=== PATIENT | male | born 1970 | race Two or more races ===

== ENCOUNTER 2016-10-19 17:03 | Inpatient (IN) | payer MEDICAID ==
[2016-10-19] VITALS (13 sets, daily range): BP systolic 57–166; BP diastolic 41–90
[~2016-10-19] VITALS: Ht 167.6 cm; Wt 45.5 kg
--- NOTE | 2016-10-19 17:10 | NUR ---
[id number], [id number] from [facility]: more altered, hypotensive. Patient came in vent with the following settings: AC=14, EY=859; PEEP=0 and FIO2=50%. Resp is warm and dry. Skin is warm and dry. Bilateral upper/lower extremities contracted. Dr Snyder at for eval. Addendum: 10/19/16 at 1751 by HAILE abdomen is hard on palpation. g-tube intact.
[2016-10-19] MEDS ORDERED: IV NS 0.9% 1,000 ML ONE ×2 (17:26→22:48)
[2016-10-19] MEDS ORDERED: IV SET PRIMARY 1 EA INFUS.SET MC ONE (17:26)
[2016-10-19] MEDS ORDERED: IV NS 0.9% 500 ML IV ONE (17:26)
[2016-10-19 17:46] LABS: BASOPHILS # (AUTO) 0.7 /CMM (0.0-0.2); EOSINOPHILS # (AUTO) 0.1 /CMM (0.0-0.7); EOSINOPHILS % (AUTO) 0.2 % (0.0-6.0); HEMATOCRIT 31 % (39-51); HEMOGLOBIN 10.7 g/dL (13.5-17.5); LYMPHOCYTES # (AUTO) 1.1 /CMM (0.8-4.8); MEAN CORPUSCULAR HEMOGLOBIN 28 PG (26.0-33.0); MEAN CORPUSCULAR HGB CONC 34 g/dl (31.0-36.0); MEAN CORPUSCULAR VOLUME 80 fL (80-96); MONOCYTES # (AUTO) 0.8 /CMM (0.1-1.30); MONOCYTES % (AUTO) 2.3 % (2.0-12.0); NEUTROPHILS # (AUTO) 32.8 /CMM (1.8-8.9); NEUTROPHILS % (AUTO) 92.5 % (43.0-81.0); PLATELET COUNT (AUTO) 503 /CMM (150-450); RDW COEFFICIENT OF VARIATION 16.6 (11.5-15.0); RED BLOOD CELL COUNT(AUTO) 3.88 MIL/uL (4.5-6.0)
--- NOTE | 2016-10-19 17:48 | NUR ---
PT CAME IN WITH PORTEX 7, PUT PT ON SIMV 14, PS 12, VT 500, 50%. VENT ALARM WORKING AND AUDIBLE. RED OUTLET PLUGGED IN, AMBU BAG AT BEDSIDE. PT TOLERATES WELL.
[2016-10-19 17:50] LABS: WHITE BLOOD COUNT (AUTO) 35.5 K/uL (4.3-11.0)
[2016-10-19] MEDS ORDERED: IV SET PRIMARY PUMP SET 1 EA INFUS.SET MC ONE ×3 (17:55→22:48)
[2016-10-19 17:59] LABS: CALCIUM, SERUM 8.6 mg/dL (8.5-10.1); CARBON DIOXIDE 26 mmol/L (21-32); CHLORIDE 96 mmol/L (98-107); GLUCOSE 109 mg/dL (74-106); POTASSIUM 4.3 mmol/L (3.5-5.1); SODIUM SERUM 129 mmol/L (136-145); UREA NITROGEN, BLOOD 25 mg/dL (7-18)
[2016-10-19 18:00] LABS: INR 1.11 (0.87-1.13); PROTHROMBIN TIME 11.6 SECS (9.5-12.7)
[2016-10-19] MEDS ORDERED: VANCOMYCIN 1 GM in IV D5W 250 ML IV ONE (18:00)
[2016-10-19] MEDS ORDERED: IV NS 0.9% 1,000 ML BAG IV ONE (18:00)
[2016-10-19] MEDS ORDERED: PIPERACILLIN /TAZOBACTAM 3.375 G in IV D5W 50 ML IV ONE (18:00)
[2016-10-19 18:05] LABS: ALANINE AMINOTRANSFERASE 80 U/L (12-78); ALBUMIN 2.3 g/dL (3.4-5.0); ALKALINE PHOSPHATASE 216 U/L (46-116); ASPARTATE AMINOTRANSFERASE 26 U/L (15-37); BILIRUBIN,DIRECT 0.1 mg/dL (0.0-0.2); BILIRUBIN,TOTAL 0.3 mg/dL (0.2-1.0); TOTAL PROTEIN, SERUM 6.9 g/dL (6.4-8.2)
[2016-10-19 18:07] LABS: TROPONIN I < 0.017 ng/mL (0.00-0.056)
[2016-10-19] MEDS ORDERED: NOREPINEPHRINE 8 MG in IV D5W 500 ML IV PRN (18:30)
[2016-10-19] MEDS ORDERED: METO50TA3 GT (18:47)
[2016-10-19] MEDS ORDERED: ACET650S26 GT (18:47)
[2016-10-19] MEDS ORDERED: INSU100V3 SQ (18:47)
[2016-10-19] MEDS ORDERED: ENOX30DI SQ (18:47)
[2016-10-19] MEDS ORDERED: LACT-96 GT (18:47)
[2016-10-19] MEDS ORDERED: BISA10SU8 RC (18:47)
[2016-10-19] MEDS ORDERED: ESOM40CA GT (18:47)
[2016-10-19] MEDS ORDERED: LISI-603 GT (18:47)
[2016-10-19] MEDS ORDERED: DOCU-170 GT (18:47)
[2016-10-19] MEDS ORDERED: IPRA3AMP IH ×2 (18:47)
[2016-10-19] MEDS ORDERED: MAGN400O6 GT (18:47)
[2016-10-19] MEDS ORDERED: NA P133E RC (18:47)
[2016-10-19] MEDS ORDERED: TRAM50TA2 GT (18:47)
[2016-10-19] MEDS ORDERED: BACL10TA GT (18:47)
[2016-10-19] MEDS ORDERED: FERR220S3 GT (18:47)
[2016-10-19 18:50] LABS: APPEARANCE,URINE Clear (CLEAR); BILIRUBIN,URINE Negative (NEGATIVE); BLOOD, URINE Negative Ery/uL (NEGATIVE); COLOR,URINE Yellow (YELLOW); KETONES,URINE Negative (NEGATIVE); LEUKOCYTE ESTERASE ,URINE Negative (NEGATIVE); NITRITE, URINE Negative (NEGATIVE); PROTEIN,URINE Trace mg/dl (NEGATIVE); UGLUCOSE Negative (NEGATIVE); UROBILINOGEN,URINE 0.2 EU/dL (0.2)
[2016-10-19 19:03] LABS: BACTERIA,URINE None seen /HPF (None Seen); RBC,URINE NONE SEEN /HPF (0-2); SQUAMOUS EPITHELIAL CELL,UR Rare /HPF (None Seen); WBC,URINE NONE SEEN /HPF (0-3)
--- NOTE | 2016-10-19 19:08 | NUR ---
report given to THANH No for ASHELY
--- NOTE | 2016-10-19 19:18 | NUR ---
pt resting in er bed, nad noted, skin warm and dry. family is at bed side, pt is on levophed 4 mcg/ min. BP has normalized; 111/65. pt is on elevator tender, will continue to monitor
[2016-10-19 20:10] LABS: BAND % (MANUAL) 10 % (0.0-5.0); LYMPHOCYTES % (MANUAL) 2 % (16-48); MONOCYTES % (MANUAL) 4 % (0-11.0); NEUTROPHILS % (MANUAL) 84 (42-76)
--- NOTE | 2016-10-19 20:30 | NUR ---
ed rn took report for ravi
--- NOTE | 2016-10-19 20:41 | NUR ---
transported pt to icu bed without incident
[2016-10-19] MEDS: IV NS 0.9% 1,000 ML IV PRN (22:55)
[2016-10-19] MEDS ORDERED: Medication Not On Formulary EA (Ipratropium/Albuterol Sulfate (Duoneb 2.5-0.5 Mg/3 Ml So IH PRN (23:00)
[2016-10-19] MEDS ORDERED: BISACODYL SUPP (10 MG) 10 MG/SUPP.RECT SUPP.RECT RC PRN (23:00)
[2016-10-19] MEDS ORDERED: IV NS 0.9% 100 ML IV PRN (23:00)
[2016-10-19] MEDS ORDERED: Z GUARD REMEDY 2 OZ OINT TP PRN (23:00)
[2016-10-19] MEDS ORDERED: ONDANSETRON HCL/PF 4 MG/2 ML VIAL IVP PRN (23:00)
[2016-10-20] VITALS (46 sets, daily range): BP systolic 85–141; BP diastolic 46–104
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
[2016-10-20] MEDS ORDERED: SECONDARY IV SET 1 EA INFUS.SET MC ONE ×2 (02:22→09:21)
[2016-10-20] MEDS ORDERED: IV D5W 50 ML IV ONE (02:22)
[2016-10-20] MEDS ORDERED: PIPERACILLIN /TAZOBACTAM 3.375 G VIAL IV ONE (02:22)
[2016-10-20] MEDS: PIPERACILLIN /TAZOBACTAM 3.375 G in IV D5W 50 ML IV SCH ×5 (02:32→23:33)
[2016-10-20] MEDS ORDERED: TRAMADOL HCL 50 MG TABLET ONE (04:29)
[2016-10-20] MEDS: TRAMADOL HCL 50 MG TABLET GT SCH ×3 (04:35→20:10)
[2016-10-20 05:02] LABS: HEMATOCRIT 30 % (39-51); HEMOGLOBIN 10.1 g/dL (13.5-17.5); LYMPHOCYTES # (AUTO) 1.2 /CMM (0.8-4.8); MEAN CORPUSCULAR HEMOGLOBIN 27 PG (26.0-33.0); MEAN CORPUSCULAR HGB CONC 34 g/dl (31.0-36.0); MEAN CORPUSCULAR VOLUME 80 fL (80-96); MONOCYTES # (AUTO) 0.8 /CMM (0.1-1.30); MONOCYTES % (AUTO) 2.8 % (2.0-12.0); NEUTROPHILS # (AUTO) 27.8 /CMM (1.8-8.9); NEUTROPHILS % (AUTO) 93.2 % (43.0-81.0); PLATELET COUNT (AUTO) 477 /CMM (150-450); RDW COEFFICIENT OF VARIATION 18.1 (11.5-15.0); RED BLOOD CELL COUNT(AUTO) 3.71 MIL/uL (4.5-6.0); WHITE BLOOD COUNT (AUTO) 29.8 K/uL (4.3-11.0)
[2016-10-20 05:20] LABS: ALBUMIN 2.2 g/dL (3.4-5.0); BILIRUBIN,DIRECT 0.1 mg/dL (0.0-0.2); BILIRUBIN,TOTAL 0.3 mg/dL (0.2-1.0); CALCIUM, SERUM 8.8 mg/dL (8.5-10.1); CREATININE 0.6 mg/dL (0.6-1.3); MAGNESIUM 2.1 mg/dL (1.8-2.4); POTASSIUM 3.5 mmol/L (3.5-5.1)
[2016-10-20 05:42] LABS: BAND % (MANUAL) 13 % (0.0-5.0); MONOCYTES % (MANUAL) 4 % (0-11.0); NEUTROPHILS % (MANUAL) 83 (42-76)
--- NOTE | 2016-10-20 08:00 | NUR ---
ICU/RN: PT RECEIVED ON TRACH-VENT, TACHYPNEIC, RR 36-40, HR 130-140'S, FEBRILE AT 100.4 WITH FACIAL GRIMACING NOTED. NS INFUSING AT 100CC/HR THROUGH R SUBCLAVIAN TRIPLE LUMEN CATH. LEVOPHED OFF, BP WITHIN DESIRED PARAMETER. L HAND #22 PATENT AND FLUSHED. PT OPENS EYES, UNABLE TO FOLLOW COMMANDS, RESPONDS TO PAINFUL STIMULI, GAG AND COUGH REFLEX PRESENT. PEG AUSCULTATED FOR PLACEMENT. ADMINISTERED TYLENOL FOR FEVER AND PAIN RELIEF. COOLING MEASURES APPLIED WILL REASSESS FOR EFFECTIVNESS WOUND CARE RENDERED PLACED ON [employer]CI MATTRESS
[2016-10-20] MEDS ORDERED: PIPERACILLIN /TAZOBACTAM 3.375 G in IV D5W 50 ML IV SCH (08:15)
[2016-10-20] MEDS: DOCUSATE SODIUM 100 MG CAPSULE PO SCH (08:40)
[2016-10-20] MEDS: FERROUS SULFATE UDC 300 MG/5 ML UDC GT SCH ×2 (08:40→16:10)
[2016-10-20] MEDS: PANTOPRAZOLE 40 MG/PACK PACK GT SCH (08:43)
[2016-10-20] MEDS: ACETAMINOPHEN 650 MG/SUPP.RECT RC PRN (08:55)
[2016-10-20] MEDS: ENOXAPARIN SODIUM 30 MG/0.3 ML DISP.SYRIN SQ SCH (08:55)
[2016-10-20] MEDS ORDERED: IPRATROPIUM NEB FS 0.5 MG/2.5 ML AMPUL.NEB NEB PRN (09:00)
[2016-10-20] MEDS ORDERED: Medication Not On Formulary EA (Esomeprazole Mag Trihydrate (Nexium) 40 MG) GT SCH (09:00)
[2016-10-20] MEDS ORDERED: ALBUTEROL FS 2.5 MG/3 ML VIAL.NEB NEB PRN (09:00)
[2016-10-20] MEDS: VANCOMYCIN 0.75 GM in IV D5W 250 ML IV SCH ×2 (09:23→16:10)
[2016-10-20] MEDS ORDERED: FIBERSOURCE HN 1,000 ML BOTTLE GT PRN (10:00)
--- NOTE | 2016-10-20 10:30 | NUR ---
ICU/RN: DR URIAS NOTIFIED OF HR 120-130'S, COOLING MEASURES EFFECTIVE. CONTINUES TO DISPLAY S/S DISCOMFORT, FACIAL GRIMACING, CRYING. TURNED AND REPOSITIONED FOR COMFORT. BOILERMAKER'S ASSISTANT NOTIFIED. Addendum: 10/20/16 at 1116 by AYLEEN PRICE RN AMENDMENT: DR ERNST NOTIFIED.
[2016-10-20 11:14] LABS: LYMPHOCYTES % (MANUAL) 0 % (16-48)
[2016-10-20] MEDS ORDERED: FEE PK DOSING 1 MIN EA MC ONE (11:45)
[2016-10-20] MEDS: IV NS 0.9% 1,000 ML IV PRN (11:47)
[2016-10-20] MEDS ORDERED: NOREPINEPHRINE 8 MG in IV D5W 500 ML IV PRN (12:00)
--- NOTE | 2016-10-20 13:00 | NUR ---
ICU/RN: BED BATH RENDERED; COOLING MEASURES EFFECTIVE. PT REQUIRES FREQUENT ORAL AND TRACHEAL SUCTIONING.
--- NOTE | 2016-10-20 15:30 | NUR ---
ICU/RN: FAMILY AT BEDSIDE. UPDATED ON PT STATUS. PT APPEARS TO RESPONDS TO NAME, TRACKS WHEN SPOKEN TO BY SISTER.
--- NOTE | 2016-10-20 17:00 | NUR ---
ICU/RN: DR KINNEY AT BEDSIDE FOR ID CONSULT; UPDATED ON PT STATUS. MD SPOKE WITH FAMILY REGARDING POC.
[2016-10-20] MEDS ORDERED: VANCOMYCIN 1 GM in IV D5W 250 ML IV SCH (18:00)
--- NOTE | 2016-10-20 19:10 | NUR ---
ICU/RN: PT COMFORTABLE ON CURRENT VENT SETTINGS; BREATHING EVEN AND UNLABORED, AFEBRILE, NO FACIAL GRIMACING NOTED, LEVOPHED OFF, HR DOWN TO ST 110'S. FC DRAINING WELL TO GRAVITY. BILAT HEELS OFFLOADED. CARE ENDORSED TO PM RN FOR ASHELY.
--- NOTE | 2016-10-20 20:00 | NUR ---
ITALIAN TEACHER - NOTES - PT RECEIVED ON TRACH-VENT, NS INFUSING AT 100CC/HR THROUGH R SUBCLAVIAN TRIPLE LUMEN CATH. LEVOPHED OFF, BP WITHIN DESIRED PARAMETER. L HAND #22 PATENT AND FLUSHED. PT OPENS EYES, UNABLE TO FOLLOW COMMANDS, RESPONDS TO PAINFUL STIMULI, GAG AND COUGH REFLEX PRESENT. PEG AUSCULTATED FOR PLACEMENT.
[2016-10-20] MEDS: LEVOFLOXACIN 750 MG /D5W 150ML 750 MG in PREMIX 1 EA IV SCH (20:09)
[2016-10-20] MEDS: MORPHINE SULFATE INJ 2 MG/ML DISP.SYRIN IV PRN (20:41)
--- NOTE | 2016-10-20 21:27 | NUR ---
PT RECEIVED TRACHED ON VENT ON NOTED SETTINGS. NO DISTRESS. PT TOLERATING VENT SETTINGS. SX'D FOR SML AMT OF THICK PALE SECRETIONS. VENT ALARMS SET AND AUDIBLE. AMBU BAG AT [facility]. VENT PLUGGED INTO RED OUTLET. WILL CONTINUE TO MONITOR. Addendum: 10/20/16 at 2130 by MADELEINE GONZALEZ RT Amended: Links added.
[2016-10-21] VITALS (23 sets, daily range): BP systolic 95–143; BP diastolic 55–99
[2016-10-21] MEDS: VANCOMYCIN 0.75 GM in IV D5W 250 ML IV SCH ×3 (00:45→21:48)
[2016-10-21] MEDS: TRAMADOL HCL 50 MG TABLET GT SCH ×3 (04:29→20:36)
[2016-10-21] MEDS: IV NS 0.9% 1,000 ML IV PRN ×3 (04:29→16:12)
[2016-10-21 05:24] LABS: CALCIUM, SERUM 8.7 mg/dL (8.5-10.1); CREATININE 0.5 mg/dL (0.6-1.3)
[2016-10-21] MEDS: PIPERACILLIN /TAZOBACTAM 3.375 G in IV D5W 50 ML IV SCH ×4 (06:53→23:43)
[2016-10-21 07:47] LABS: BASOPHILS % (AUTO) 0.2 % (0.0-2.0); EOSINOPHILS # (AUTO) 0.3 /CMM (0.0-0.7); EOSINOPHILS % (AUTO) 2.1 % (0.0-6.0); HEMATOCRIT 26 % (39-51); HEMOGLOBIN 8.8 g/dL (13.5-17.5); LYMPHOCYTES # (AUTO) 1.1 /CMM (0.8-4.8); LYMPHOCYTES % (AUTO) 8.9 % (20.0-44.0); MEAN CORPUSCULAR HEMOGLOBIN 28 PG (26.0-33.0); MEAN CORPUSCULAR HGB CONC 34 g/dl (31.0-36.0); MEAN CORPUSCULAR VOLUME 81 fL (80-96); MONOCYTES # (AUTO) 0.9 /CMM (0.1-1.30); MONOCYTES % (AUTO) 6.9 % (2.0-12.0); NEUTROPHILS # (AUTO) 10.2 /CMM (1.8-8.9); NEUTROPHILS % (AUTO) 81.9 % (43.0-81.0); PLATELET COUNT (AUTO) 413 /CMM (150-450); RDW COEFFICIENT OF VARIATION 17.8 (11.5-15.0); RED BLOOD CELL COUNT(AUTO) 3.19 MIL/uL (4.5-6.0); WHITE BLOOD COUNT (AUTO) 12.4 K/uL (4.3-11.0)
[2016-10-21] MEDS: PANTOPRAZOLE 40 MG/PACK PACK GT SCH (08:18)
[2016-10-21] MEDS: DOCUSATE SODIUM 100 MG CAPSULE PO SCH (08:18)
[2016-10-21] MEDS: FERROUS SULFATE UDC 300 MG/5 ML UDC GT SCH ×2 (08:18→16:07)
[2016-10-21] MEDS: MORPHINE SULFATE INJ 2 MG/ML DISP.SYRIN IV PRN (08:53)
[2016-10-21] MEDS: ENOXAPARIN SODIUM 30 MG/0.3 ML DISP.SYRIN SQ SCH (08:56)
[2016-10-21 09:04] LABS: ABG BASE EXCESS -1.8 mmol/L; ABG OXYGEN SATURATION 98.6 % (92.0-98.5); ABG PCO2 30.3 mmHg (35.0-45.0); ABG PH 7.465 (7.350-7.450); ABG PO2 157.9 mmHg (75.0-100.0); AaDO2 164.5 mmHg; COHb 0.3 % (0.5-1.5); MetHb 0.6 % (0.0-1.5); O2Hb 97.7 % (94.0-97.0); SITE, ABG Right Radial; VT, ABG 500 mL
--- NOTE | 2016-10-21 10:00 | NUR ---
MBA INTERNS[employer]IP- Leighton CROSS CIRCUS TRAIN SUPERVISOR AT BEDSIDE. ASKED CIRCUS TRAIN SUPERVISOR IF OK TO START PT ON GTF. PER Leighton CROSS, OK TO RESUME GTF OF FIBERSOURCE @ 50 ML/HR. CIRCUS TRAIN SUPERVISOR TO PLACE ORDER. WILL CONTINUE TO MONITOR.
--- NOTE | 2016-10-21 10:10 | NUR ---
TECHNICAL ILLUSTRATIONS MAP INKER- RUDY TROUGH THIS AM= 28. PER PHARMACIST, HOLD 9 AM DOSE. VANCOMYCIN NOT GIVEN. WILL CONTINUE TO MONITOR.
--- NOTE | 2016-10-21 10:45 | NUR ---
SED SPECIAL EDUCATION TEACHER- PT DISPLAYING S/S OF PAIN, DISCOMFORT, HR INCREASING TO THE 130S. ADMINISTERED MORPHINE 2 MG IV AT 0850 AND WAS EFFECTIVE. HOWEVER DOSE IS NOT DUE AT THIS TIME. UPDATED DR. SEGURA WITH PT CONDITION. OBTAINED ORDER FOR ATIVAN 1 MG IVP Q1H PRN. ORDER PLACED. WILL CONTINUE TO MONITOR.
[2016-10-21] MEDS: POTASSIUM CHLORIDE 20 MEQ POWDER PACKET GT SCH ×3 (10:49→12:43)
--- NOTE | 2016-10-21 11:30 | NUR ---
PHARMACY SCHEDULER- RAPID INFLUENZA SPECIMEN TAKEN AND PLACED IN FRIDGE FOR LAB CALENDER FEEDER. 1145- RT COLLECTED SPUTUM CULTURE. WILL CONTINUE MONITOR.
--- NOTE | 2016-10-21 11:59 | NUR ---
TD/RN REPORT FROM ICU RECEIVED REPORT FROM ICU NURSE LOVE FOR PT TO BE DOWNGRADED TO [facility] STATUS. AWAITING FOR PT'S ARRIVAL.
--- NOTE | 2016-10-21 12:00 | NUR ---
LEAD PORTFOLIO MANAGER- REPORT GIVEN TO COLTEN RN 1247- PT TRANSFERRED TO [facility] ROOM 119-1 VIA ACLS PROTOCOL. ALL BELONGINGS SENT WITH PATIENT. Addendum: 10/21/16 at 1325 by LOVE THOMPSON RN ENDORSED TO COLTEN RN NEED TO COLLECT STOOL OB. PT HAS NOT HAD BOWEL MOVEMENT DURING MY SHIFT.
[2016-10-21] MEDS: LORAZEPAM INJ 2 MG/ML VIAL IV PRN ×2 (12:05→15:44)
[2016-10-21] MEDS: FIBERSOURCE HN 1,000 ML BOTTLE GT PRN (12:44)
--- NOTE | 2016-10-21 12:45 | NUR ---
TD/DIANETICIST TO TD UNIT - ROOM 119#1 PT ARRIVED VIA BED, ACCOMPANIED BY ICU NURSE LOVE AND RTCARLOS. NO ACUTE DISTRESS, PT OPEN EYES, NO TRACKING AND OBTUNDED. PT PLACED BACK ON VENTILATOR RATE SET PRESCRIBED, SATURATING @ 100%, SUCTIONED FOR AIRWAY CLEARANCE, LUNG SOUNDS CLEAR. ON TELE WITH SINUS TACHY, HR 114. IV SITES FLUSHED, PATENT WITH NO S/S OF INFECTION. IV INFUSION OF NS @ 75CC/HR, CONTINUED. GT SITE FLUSHED, PATENT, GTF INITIATED WITH FIBERSOURCE @ 50CC/HR. CROOK CATHETER INTACT WITH NOTED YELLOW URINE OUTPUT. PT IS COMFORTABLE AT THIS TIME. SCHEDULED MEDICATIONS TO BE GIVEN. CL WITHIN REACHED AND SAFETY MAINTAINED. ON GOING MONITORING.
--- NOTE | 2016-10-21 18:00 | NUR ---
TD/RN AFTERNOON ROUNDS PM CARE PROVIDED. NO ACUTE CHANGE OF CONDITION. ON GOING MONITORING.
--- NOTE | 2016-10-21 19:13 | NUR ---
TD/RN AM SHIFT END NOTES ALL NEEDS MET. NO CHANGE OF CONDITION NOTED SINCE PT WAS TRANSFERRED FROM ICU. PT ENDORSED TO PM NURSE TO CONTINUE CARE. CL WITHIN REACHED AND SAFETY MAINTAINED.
--- NOTE | 2016-10-21 19:25 | NUR ---
COLTEN RN OPENING NOTES: RECEIVED PT ON BED OBTUNDED, NON VERBAL WITH SPONTANEOUS EYE OPENING, DOES NOT TRACK; ON TRACH TO [facility] VENT ON SIMV MODE; TOLERATED WELL, NOT IN APPARENT DISTRESS AT THIS TIME, KEPT HOB ELEVATED AND ASPIRATION PRECAUTIONS OBSERVED AT ALL TIMES; SINUS TACH ON MONITOR HR AT 120'S. IV ACCESS ON R HAND G22 SL PATENT AND INTACT, WELL, R SUBCLAVIAN CENTRAL LINE, ALL 3 LUMENS INTACT, WITH GOOD BLOOD RETURN. GT INTACT, FEEDING ON ONGOING RATE, NO NOTED RESIDUALS. FC INTACT, TO A CLOSED SYSTEM, DRAINING TO GRAVITY. SAFETY MEASURES ENSURED. NO NOTED NON VERBAL PAIN CUES AT THIS TIME. MONITORED CONTINUOUSLY.
[2016-10-21] MEDS: LEVOFLOXACIN 750 MG /D5W 150ML 750 MG in PREMIX 1 EA IV SCH (20:35)
[2016-10-21] MEDS ORDERED: SECONDARY IV SET 1 EA INFUS.SET MC ONE (20:39)
--- NOTE | 2016-10-21 21:26 | NUR ---
PT TRACHED ON MECHANICAL VENT W/ SETTINGS PER MD. VENT IN RED OUTLET, AMBUBAG AT BEDSIDE, VENT ALARMS CHECKED AND AUDIBLE. TRACH TUBE SECURE, PATENT. PT SX'ED AND LAVAGED PRN. NO RESP DISTRESS NOTED. PLAN IS TO CONTINUE CARE W/ CURRENT MD ORDERS AND MONITOR FOR CHANGES Addendum: 10/21/16 at 2126 by MARCO ANTONIO COLON RT Amended: Links added.
[2016-10-21] MEDS ORDERED: IV NS 0.9% 250 ML IV ONE (23:44)
[2016-10-21] MEDS ORDERED: IV SET PRIMARY PUMP SET 1 EA INFUS.SET MC ONE (23:44)
[2016-10-22] VITALS (8 sets, daily range): BP systolic 99–129; BP diastolic 60–82
[2016-10-22] MEDS: LORAZEPAM INJ 2 MG/ML VIAL IV PRN ×2 (00:40→23:16)
--- NOTE | 2016-10-22 00:50 | NUR ---
RN NOTES: NOTED PATIENT'S HEART RATE INCREASE TO 130'S-140'S SUSTAINING, PATIENT'S LEG SLIGHTLY RESTLESS AND PATIENT IS DIAPHORETIC. TEMP CHECKED AT 98.3 ORALLY AND RANDOM BS CHECK DONE, NOTED 81MG/DL; GT FEEDING ONGOING STILL. ATIVAN 1MG IV GIVEN PRN. TO MONITOR RESPONSE TO MEDICATION. 0200 PATIENT'S HEART RATE NOW DOWN TO 120'S BASELINE BEGINNING OF SHIFT. REPOSITIONED PATIENT NOW NOTED TO BE ASLEEP. TO CONTINUE TO MONITOR FOR FURTHER INCREASE IN HR.
[2016-10-22] MEDS: TRAMADOL HCL 50 MG TABLET GT SCH ×3 (05:08→20:21)
[2016-10-22] MEDS: PIPERACILLIN /TAZOBACTAM 3.375 G in IV D5W 50 ML IV SCH ×4 (05:08→23:16)
--- NOTE | 2016-10-22 06:38 | NUR ---
RN CLOSING NOTES: PT REMAINED IN BED WITH MECH VENT ORDERED; TOLERATED WELL, NOT IN APPARENT DISTRESS. REMAINED SINUS TACH ON MONITOR HR AT 112 BPM, THE REST OF VITAL SIGNS STABLE. SKIN CARE RENDERED. GT INTACT, FEEDING ONGOING TOLERATED WELL. FC DRAINED AND UO DOCUMENTED. AM LABS DRAWN, RESULTS PENDING. SAFETY MEASURES ENSURED AT ALL TIMES. CONTINUOUSLY MONITORED. TO ENDORSE TO AM SHIFT RN.
[2016-10-22 06:50] LABS: BASOPHILS % (AUTO) 0.3 % (0.0-2.0); EOSINOPHILS # (AUTO) 0.5 /CMM (0.0-0.7); EOSINOPHILS % (AUTO) 4.5 % (0.0-6.0); HEMATOCRIT 27 % (39-51); HEMOGLOBIN 9.1 g/dL (13.5-17.5); LYMPHOCYTES # (AUTO) 1.3 /CMM (0.8-4.8); LYMPHOCYTES % (AUTO) 11.7 % (20.0-44.0); MEAN CORPUSCULAR HEMOGLOBIN 27 PG (26.0-33.0); MEAN CORPUSCULAR HGB CONC 33 g/dl (31.0-36.0); MEAN CORPUSCULAR VOLUME 81 fL (80-96); MONOCYTES % (AUTO) 8.9 % (2.0-12.0); NEUTROPHILS # (AUTO) 8.5 /CMM (1.8-8.9); NEUTROPHILS % (AUTO) 74.6 % (43.0-81.0); PLATELET COUNT (AUTO) 397 /CMM (150-450); RDW COEFFICIENT OF VARIATION 17.8 (11.5-15.0); RED BLOOD CELL COUNT(AUTO) 3.36 MIL/uL (4.5-6.0); WHITE BLOOD COUNT (AUTO) 11.4 K/uL (4.3-11.0)
[2016-10-22 06:55] LABS: CREATININE 0.5 mg/dL (0.6-1.3); MAGNESIUM 1.7 mg/dL (1.8-2.4); POTASSIUM 3.8 mmol/L (3.5-5.1)
--- NOTE | 2016-10-22 07:26 | NUR ---
RN INITIAL NOTES PT IS IN BED, HOB OF ELEVATED, ON MECHANICAL VENT, TOLERATING CURRENT SETTINGS, TRACH INTACT. OBTUNDED, NON VERBAL. RIGHT SUBCLAVIAN LINE IS FLUSHED AND PATENT, ON TKO AND IVF. ON CONTINUOUS FEEDING, NO RESIDUAL NOTED. CROOK CATH IS PATENT AND DRAINING YELLOW URINE. SIDE RAILS UP, BED LOCKED AND IN LOWEST POSITION. WILL CONTINUE TO MONITOR.
[2016-10-22] MEDS: PANTOPRAZOLE 40 MG/PACK PACK GT SCH (09:00)
[2016-10-22] MEDS: FERROUS SULFATE UDC 300 MG/5 ML UDC GT SCH ×2 (09:00→17:15)
[2016-10-22] MEDS: VANCOMYCIN 0.75 GM in IV D5W 250 ML IV SCH ×2 (09:00→22:01)
[2016-10-22] MEDS: ENOXAPARIN SODIUM 30 MG/0.3 ML DISP.SYRIN SQ SCH (09:02)
[2016-10-22] MEDS: DOCUSATE SODIUM 100 MG CAPSULE PO SCH (09:04)
[2016-10-22] MEDS: IV NS 0.9% 1,000 ML IV PRN (11:29)
[2016-10-22] MEDS: FIBERSOURCE HN 1,000 ML BOTTLE GT PRN (11:34)
[2016-10-22] MEDS: Magnesium 1GM/D5W 100ML PREMIX 100 ML IV SCH ×2 (13:06→14:32)
--- NOTE | 2016-10-22 14:08 | NUR ---
Social service consult requested by Dr. Franz in regards to pt's sister wanting to get DPOA. COOPER called pt's sister Byron and spoke to her Abelardo Canales since Byron only speaks Swedish. Abelardo informed COOPER that Byron wants to get DPOA for the pt. COOPER explained to Abelardo that since pt. is not alert and oriented and non-verbal and cannot make his wishes known, she would have to go through conservatorship through the court. Abelardo informed COOPER he will explain the process to Byron. Addendum: 10/22/16 at 1424 by CARLIN GAMBOA Abelardo also informed COOPER that Byron pt's sister does not want pt. to go back to [facility] once medically cleared. She would like a different placement. COOPER informed Abelardo she will inform upper caser Devora regarding their request. COOPER contacted Devora x [phone] and informed her regarding change in placement wanted by the family.
[2016-10-22] MEDS: LACTOBACILLUS RHAMNOSUS GG 1 EACH CAP.SPRINK GT SCH (17:15)
--- NOTE | 2016-10-22 19:23 | NUR ---
RN CLOSING NOTES NO SIGNIFICANT CHANGES DURING THE SHIFT, SINUS TACHY ON TELE MONITOR, TOLERATING CURRENT SIMV MECH VENT SETTINGS, NO RESPIRATORY DISTRESS NOTED, ON CONTINUOUS FEEDING AND TOLERATING IT WELL, NO RESIDUAL NOTED. ALL MEDS GIVEN ORDERED. KEPT PT CLEAN AND DRY. SIDE RAILS UP, BED LOCKED AND IN LOWEST POSITION. R SUBCLAVIAN IS CLEAN AND NO INFECTION NOTED. WILL ENDORSED TO NIGHT NURSE FOR CONTINUATION OF CARE.
--- NOTE | 2016-10-22 19:30 | NUR ---
RN NOTES: RECEIVED PATIENT, AWAKE, OBTUNDED, NO TRACKING. NO RESPIRATORY DISTRESS ON VENT. SETTINGS TOLERATING WELL. SINUS TACHYCARDIA ON MONITOR, HEART RATE 127BPM. IV ACCESS TO RIGH SUBCLAVIAN TRIPLE LUMEN ON THE RIGHT CHEST, PATENT INTACT WITH GOOD BLOOD FLOW. GT IN PLACE, FEEDING FIBERSOURCE AT 50CC/HR, TOLERATING WELL. NO RESIDUAL. WITH FC, DRAINING CLEAR YELLOW WITH NO FOUL ODOR URINE. SAFETY MEASURES INSURED, FALL AND ASPIRATION PRECAUTION. CONTINUOUSLY MONITORED.
[2016-10-22] MEDS: LEVOFLOXACIN 750 MG /D5W 150ML 750 MG in PREMIX 1 EA IV SCH (20:21)
--- NOTE | 2016-10-22 23:16 | NUR ---
RN NOTES NOTED HEART RATE AT 130-145BPM, FAST BREATHING. RESTLESSNESS NOTED. ATIVAN 1MG GIVEN IV PUSH. MONITORED PATIENT'S RESPONSE TO MEDICATION.
[2016-10-22] MEDS: ACETAMINOPHEN 650 MG/20.3 ML UDC GT PRN (23:54)
[2016-10-22] MEDS: MORPHINE SULFATE INJ 2 MG/ML DISP.SYRIN IV PRN (23:54)
--- NOTE | 2016-10-22 23:54 | NUR ---
RN NOTES: NOTES PATIENT STILL TO BE TACHYCARDIC HR AT 130-140'S; TACHYPNEIC WITH RR AT 32 AND TEMP OF 100.2 AT THIS TIME. THIS IS 30 MINS AFTER ATIVAN IV ADMINISTRATION.PATIENT NOTED WITH FACIAL GRIMACING WITH NOTED TENSING UP OF ALL EXTREMITIES AND IS DIAPHORETIC. MORPHINE IV GIVEN ORDERED. MONITORED FOR RESPONSE TO MEDICATION. RENDERED COOLING MEASURES WELL PRN TYLENOL FOR FEVER. TO RE ASSESS PATIENT. 0200 RN NOTES: NOTED PATIENT MORE CALM WITH INTERMITTENT SLEEP. HR NOW DOWN TO 120'S. TO CONTINUE TO MONITOR FOR NON VERBAL PAIN CUES AND PERSISTENT INCREASE IN HR.
[2016-10-23] VITALS (7 sets, daily range): BP systolic 106–145; BP diastolic 56–94
[2016-10-23] MEDS ORDERED: IV NS 0.9% 1,000 ML ONE ×2 (01:27→01:38)
[2016-10-23] MEDS ORDERED: IV SET PRIMARY 1 EA INFUS.SET MC ONE (01:30)
[2016-10-23] MEDS ORDERED: IV SET PRIMARY PUMP SET 1 EA INFUS.SET MC ONE ×2 (01:46→01:52)
[2016-10-23] MEDS: TRAMADOL HCL 50 MG TABLET GT SCH ×3 (05:02→20:31)
[2016-10-23] MEDS: LORAZEPAM INJ 2 MG/ML VIAL IV PRN (05:02)
[2016-10-23] MEDS: PIPERACILLIN /TAZOBACTAM 3.375 G in IV D5W 50 ML IV SCH ×4 (05:03→23:40)
--- NOTE | 2016-10-23 05:30 | NUR ---
RN NOTES: CALLED [facility] ONCALL DR HUYNH PATIENT REMAINS TACHYCARDIC DESPITE ATIVAN PRN. WITH ORDERS TO GIVE METOPROLOL 25 MG BID TO GIVE FIRST DOSE NOW AND BOLUS OF NS 500CC X1; IF WITH SOME IMPROVEMENT THEN REPEAT ANOTHER BOLUS. ORDERS NOTED AND CARRIED OUT. CONTINUOUSLY MONITORED PT.
[2016-10-23] MEDS ORDERED: IV NS 0.9% 500 ML IV ONE ×2 (06:07→06:30)
[2016-10-23] MEDS ORDERED: METOPROLOL TARTRATE 25 MG TABLET ONE (06:21)
[2016-10-23] MEDS ORDERED: METOPROLOL TARTRATE 25 MG TABLET PO SCH ×2 (06:30→06:56)
--- NOTE | 2016-10-23 06:41 | NUR ---
RN CLOSING NOTES: PATIENT REMAINED IN BED, MENTAL STATUS REMAINED THE SAME. SINUS TACH ON MONITOR HR AT 120'S. KEPT TRACH TO [facility] VENT SETTINGS TOLERATED WELL. IV BOLUS ONGOING, TO REASSESS POST BOLUS FOR NECESSITY OF ANOTHER ONE. TO ENDORSE TO AM SHIFT RN. AM LABS DRAWN, RESULTS PENDING. SKIN CARE RENDERED. SAFETY MEASURES ENSURED. NO MORE FEVER NOTED. CONTINUOUSLY MONITORED PATIENT. TO ENDORSE TO AM SHIFT RN.
[2016-10-23 06:49] LABS: BASOPHILS % (AUTO) 0.1 % (0.0-2.0); EOSINOPHILS # (AUTO) 0.5 /CMM (0.0-0.7); EOSINOPHILS % (AUTO) 5.6 % (0.0-6.0); HEMATOCRIT 31 % (39-51); HEMOGLOBIN 10.2 g/dL (13.5-17.5); LYMPHOCYTES # (AUTO) 1.7 /CMM (0.8-4.8); LYMPHOCYTES % (AUTO) 17.7 % (20.0-44.0); MEAN CORPUSCULAR HEMOGLOBIN 27 PG (26.0-33.0); MEAN CORPUSCULAR HGB CONC 33 g/dl (31.0-36.0); MEAN CORPUSCULAR VOLUME 81 fL (80-96); MONOCYTES % (AUTO) 10.5 % (2.0-12.0); NEUTROPHILS # (AUTO) 6.3 /CMM (1.8-8.9); NEUTROPHILS % (AUTO) 66.1 % (43.0-81.0); PLATELET COUNT (AUTO) 502 /CMM (150-450); RDW COEFFICIENT OF VARIATION 17.9 (11.5-15.0); RED BLOOD CELL COUNT(AUTO) 3.78 MIL/uL (4.5-6.0); WHITE BLOOD COUNT (AUTO) 9.6 K/uL (4.3-11.0)
--- NOTE | 2016-10-23 07:05 | NUR ---
RN NOTES: BOLUS FINISHED. PATIENT'S HEART RATE NOW DOWN TO 113 BPM. REMAINS SINUS TACH.. TO ENDORSE TO AM SHIFT RN.
[2016-10-23 07:09] LABS: CREATININE 0.6 mg/dL (0.6-1.3); MAGNESIUM 2.1 mg/dL (1.8-2.4); POTASSIUM 3.3 mmol/L (3.5-5.1)
--- NOTE | 2016-10-23 07:37 | NUR ---
RT PT RECEIVED TRACHED ON THE VENT WITH NOTED SETTINGS. PT IS AWAKE BUT DOES NOT FOLLOW COMMANDS. VENT ALARMS ARE SET AND AUDIBLE WITH BVM BY BEDSIDE. [facility] CUFF PRESSURE NOTED. VENT IS PLUGGED INTO RED OUTLET. NO RESPIRATORY DISTRESS NOTED AT THIS TIME, WILL CONTINUE TO MONITOR. Addendum: 10/23/16 at 0922 by JUAN JOSÉ HEREDIA RT Amended: Links added.
[2016-10-23] MEDS: FERROUS SULFATE UDC 300 MG/5 ML UDC GT SCH ×2 (08:50→17:07)
[2016-10-23] MEDS: LACTOBACILLUS RHAMNOSUS GG 1 EACH CAP.SPRINK GT SCH ×2 (08:50→17:07)
[2016-10-23] MEDS: PANTOPRAZOLE 40 MG/PACK PACK GT SCH (08:50)
[2016-10-23] MEDS: ENOXAPARIN SODIUM 30 MG/0.3 ML DISP.SYRIN SQ SCH (08:54)
[2016-10-23] MEDS: ACETAMINOPHEN 650 MG/20.3 ML UDC GT PRN (08:55)
[2016-10-23] MEDS: DOCUSATE SODIUM LIQ 100 MG/10 ML UDC GT SCH (08:55)
--- NOTE | 2016-10-23 08:55 | NUR ---
COLTEN/RN - Notes Pt noted to be diaphoretic,low grade temperature 99.3F, tachycardic HR 120's. Administered Tylenol 650 mg via GT as ordered. Cooling measures in place. Will continue to monitor.
[2016-10-23] MEDS: VANCOMYCIN 0.75 GM in IV D5W 250 ML IV SCH (09:04)
[2016-10-23] MEDS ORDERED: POTASSIUM CHLORIDE 20 MEQ POWDER PACKET NG SCH (10:30)
[2016-10-23] MEDS: FIBERSOURCE HN 1,000 ML BOTTLE GT PRN (11:41)
[2016-10-23] MEDS: IV NS 0.9% 250 ML IV PRN (17:07)
--- NOTE | 2016-10-23 17:30 | NUR ---
COLTEN/RN - Notes Bed bath given to pt. Pt noted with bowel movement, stool specimen sent to lab as ordered. Pt suctioned and repositioned for comfort.
[2016-10-23] MEDS: LEVOFLOXACIN 750 MG /D5W 150ML 750 MG in PREMIX 1 EA IV SCH (19:52)
--- NOTE | 2016-10-23 20:00 | NUR ---
lincoln rn notes received pts on bed th eyes open , no sob no distress no facial grimaces noted at this time . on tele st on the monitor 120-130s v/s stable afebrile , all needs attended too call light with in reach, hob elevated for aspiration precaution . on vent simv rate 14 psv-12 tv -500 , 50%fio2 well tolerated. suction secretion done , turned and reposition . all due meds given as ordered on gt feeding fibersource at 50 cc/hr no residual noted . with tlc on r subclavian tko .with f/c intact and patent draining with yellowish urine output. kept pts comfortable in bed , will continue to monitor pts.
[2016-10-23] MEDS: METOPROLOL TARTRATE 25 MG TABLET PO SCH (20:30)
[2016-10-23] MEDS: MORPHINE SULFATE INJ 2 MG/ML DISP.SYRIN IV PRN (23:55)
--- NOTE | 2016-10-23 23:55 | NUR ---
LUCIEN LAW NOTES: BP WAS RECHECKED: 140/95 HR 120s. MORPHINE 2MG WAS ADMINISTERED. WILL CONTINUE TO MONITOR PT. Addendum: 10/24/16 at 0026 by BARBIE SILVA RN COLTEN KWON
[2016-10-24] VITALS (8 sets, daily range): BP systolic 104–164; BP diastolic 62–94
[2016-10-24] MEDS: LORAZEPAM INJ 2 MG/ML VIAL IV PRN ×3 (01:30→17:36)
--- NOTE | 2016-10-24 01:30 | NUR ---
COLTEN RN NOTES: ATIVAN 1MG WAS ADMINISTERED. WILL CONTINUE TO MONITOR PT.
--- NOTE | 2016-10-24 03:09 | NUR ---
COLTEN RN NOTES: ATIVAN 1MG WAS ADMINISTERED. WILL CONTINUE TO MONITOR PT.
--- NOTE | 2016-10-24 03:20 | NUR ---
COLTEN RN NOTES: SPOKE WITH DR. HUYNH AND RELAYED SVT 160 HR. GOT ORDER FOR ADENOSINE 6MG IV X 1. IF INEFFECTIVE, TO GIVE ADENOSINE 12MG IV X 1.
[2016-10-24] MEDS ORDERED: ADENOSINE 6 MG/2 ML VIAL ONE ×3 (03:27→03:36)
[2016-10-24] MEDS ORDERED: ADENOSINE 6 MG/2 ML VIAL IVP ONE ×2 (03:30→04:00)
--- NOTE | 2016-10-24 03:30 | NUR ---
COLTEN RN NOTES: ADENOSINE 6MG IV WAS GIVEN FOR SVT 160.
--- NOTE | 2016-10-24 03:43 | NUR ---
COLTEN RN NOTES: PER DR. HUYNH, SINCE ADENOSINE 6MG IV WAS INEFFECTIVE, TO GIVE ADENOSINE 12MG IV. ADENOSINE 12MG WAS ADMINISTERED WITH A LITTLE EFFECT. HR WAS 140S. CALLED DR. HUYNH SINCE IT WAS INEFFECTIVE. DR. HUYNH SAID HE WILL BE HERE AT BEDSIDE.
[2016-10-24] MEDS ORDERED: IBUPROFEN SUSP 100 MG/5 ML UDC ONE ×3 (03:50→03:54)
--- NOTE | 2016-10-24 03:50 | NUR ---
COLTEN RN NOTES: DR. HUYNH AT BEDSIDE. RECTAL TEMP WAS TAKEN 101 WITH ORDER MADE AND CARRIED OUT. ALSO PUT PT ON 1L OF NS BOLUS. COOLING MEASURES APPLIED. OK DR. HUYNH "INAPPROPRIATE PHYSIOLOGICAL RESPONSE TO FEVER."
--- NOTE | 2016-10-24 03:50 | NUR ---
COLTEN RN NOTES: BP WAS 119/81
[2016-10-24] MEDS ORDERED: IV NS 0.9% 1,000 ML ONE (03:53)
[2016-10-24] MEDS: ACETAMINOPHEN 650 MG/20.3 ML UDC GT PRN ×2 (03:56→17:35)
[2016-10-24] MEDS ORDERED: IBUPROFEN SUSP 100 MG/5 ML UDC PO PRN (04:00)
[2016-10-24] MEDS ORDERED: IV NS 0.9% 1,000 ML BAG IV ONE (04:00)
--- NOTE | 2016-10-24 04:20 | NUR ---
COLTEN RN NOTES: HR NOW IN 140S.
[2016-10-24] MEDS: PIPERACILLIN /TAZOBACTAM 3.375 G in IV D5W 50 ML IV SCH ×4 (05:03→23:35)
[2016-10-24] MEDS: TRAMADOL HCL 50 MG TABLET GT SCH ×3 (05:14→20:27)
--- NOTE | 2016-10-24 06:26 | NUR ---
COLTEN RN NOTES PTS ON BED REMAINS ON VENT SIMV SETTINGS WELL TOLERATED . HOB ELEVATED FOR ASPIRATION PRECAUTION , REMAINS ON GT FEEDING NO RESIDUAL NOTED , PTS REMAINS ON TELE ST -120 ON THE MONITOR. CONTINUE ON COOLING MEASURES , LATEST TEMP 99.7 RECTALLY WILL CONTINUE TO MONITOR PTS.WILL ENDORSE TO RN DAY SHIFT FOR CONTINUITY ON CARE.
[2016-10-24] MEDS ORDERED: IBUPROFEN SUSP 100 MG/5 ML UDC GT PRN (07:16)
--- NOTE | 2016-10-24 07:50 | NUR ---
RT PATIENT REC'D TRACHED ON [facility] WITH SETTINGS SET BY MD DEVORA SEARS. VENT ALARMS CHECKED + AUDIBLE. CUFF PRESSURE CHECKED IT HELP DESK MANAGER. SX'D WITH SMALL AMT PALE SEMI-THICK SECRETIONS. COARSE B/S. PATIENT APPEARS COMFORTABLE AND IN NO DISTRESS AT THIS TIME. AMBU BAG AT HOB. CONT CURRENT PLAN OF CARE. Addendum: 10/24/16 at 1256 by OBDULIO HICKS RT Amended: Links added.
[2016-10-24 07:57] LABS: BASOPHILS % (AUTO) 0.2 % (0.0-2.0); EOSINOPHILS # (AUTO) 0.5 /CMM (0.0-0.7); EOSINOPHILS % (AUTO) 4.6 % (0.0-6.0); HEMATOCRIT 31 % (39-51); HEMOGLOBIN 10.1 g/dL (13.5-17.5); LYMPHOCYTES # (AUTO) 1.3 /CMM (0.8-4.8); LYMPHOCYTES % (AUTO) 11.2 % (20.0-44.0); MEAN CORPUSCULAR HEMOGLOBIN 27 PG (26.0-33.0); MEAN CORPUSCULAR HGB CONC 33 g/dl (31.0-36.0); MEAN CORPUSCULAR VOLUME 82 fL (80-96); MONOCYTES # (AUTO) 1.1 /CMM (0.1-1.30); MONOCYTES % (AUTO) 9.5 % (2.0-12.0); NEUTROPHILS # (AUTO) 8.4 /CMM (1.8-8.9); NEUTROPHILS % (AUTO) 74.5 % (43.0-81.0); PLATELET COUNT (AUTO) 454 /CMM (150-450); RDW COEFFICIENT OF VARIATION 18.1 (11.5-15.0); RED BLOOD CELL COUNT(AUTO) 3.72 MIL/uL (4.5-6.0); WHITE BLOOD COUNT (AUTO) 11.3 K/uL (4.3-11.0)
[2016-10-24] MEDS: DOCUSATE SODIUM LIQ 100 MG/10 ML UDC GT SCH (08:12)
[2016-10-24] MEDS: FERROUS SULFATE UDC 300 MG/5 ML UDC GT SCH ×2 (08:12→17:35)
[2016-10-24] MEDS: PANTOPRAZOLE 40 MG/PACK PACK GT SCH (08:12)
[2016-10-24] MEDS: METOPROLOL TARTRATE 25 MG TABLET PO SCH ×2 (08:13→20:28)
[2016-10-24] MEDS: LACTOBACILLUS RHAMNOSUS GG 1 EACH CAP.SPRINK GT SCH ×2 (08:14→17:35)
[2016-10-24] MEDS: ENOXAPARIN SODIUM 30 MG/0.3 ML DISP.SYRIN SQ SCH (08:14)
--- NOTE | 2016-10-24 08:15 | NUR ---
RN COLTEN; ASSESSMENT RECEIVED PT OBTUNDED VENTED VIA TRACH ON SIMV SETTINGS, SEE FLOW SHEET. NOTED MALISSA LOWER AND MALISSA UPPER EXTREMITIES CONTRACTED. PT ON TUBE FEEDING TOLERATING WELL. NO RESIDUALS NOTED. PT ON INSPECTOR OPTICAL INSTRUMENT ST, PT CURRENTLY AFEBRILE. CROOK CATH INTACT DRAINING TO GRAVITY CLEAR YELLOW URINE. NO ACUTE DISTRESS NOTED. WILL CONTINUE TO MONITOR CLOSELY.
[2016-10-24 08:18] LABS: CREATININE 0.8 mg/dL (0.6-1.3); POTASSIUM 3.5 mmol/L (3.5-5.1)
--- NOTE | 2016-10-24 09:56 | NUR ---
WOUND CARE CONSULT: PT PRESENTS WITH LOWER EXTREMITY CONTRACTURES AND SCARRING TO SACRUM AND HIPS. ALL SKIN PROTECTION RECOMMENDATIONS DISCUSSED WITH NURSING STAFF. PT ON FIRST STEP MATTRESS. WILL SEE PRN. SCOTT IN AGREEMENT WITH PLAN OF CARE. Addendum: 10/24/16 at 0957 by BANDAR CHE WNDNU Amended: Links added.
[2016-10-24] MEDS: FIBERSOURCE HN 1,000 ML BOTTLE GT PRN (12:08)
[2016-10-24] MEDS: IV 1/2NS 1000 ML 1,000 ML IV PRN (12:43)
--- NOTE | 2016-10-24 17:33 | NUR ---
BILLING AND INSURANCE COORDINATOR; FAMILY AT BEDSIDE UPDATE WAS GIVEN. PER FAMILY REQUEST DOES NOT WANT THE PT DO LAY/TURN TO LEFT SIDE. FAMILY OK WITH HIM TURNING TO TIGHT SIDE OR SUPINE. EDUCATION GIVEN REGRADING SKIN INTEGRITY, FAMILY STILL REQUEST NO LEFT SIDE
--- NOTE | 2016-10-24 18:44 | NUR ---
RN COLTEN; HR NOTED HR 130'S ATIVAN AND TYLENOL GIVEN ORDERED. HR STILL REMAINS ELEVATED. Leighton CROSS RETAIL SELLING SPECIALIST NOTIFIED AWAITING CALL BACK.
--- NOTE | 2016-10-24 20:00 | NUR ---
lincoln rn notes received pts on bed obtunded with eyes open, on vent setting simv well tolerated . no sob no distress no facial grimaces noted , hob elevated for aspiration precaution.suction secretion done and prn v/s stable afebrile , with r subclavian tlc intact and patent , with iv f of 1/2 ns at 75cc/hr infusing well . with f/c intact and patent draining with yellowish urine output , gt feeding fibersource at 50cc/hr no residual noted .all needs attended too call light with in reach due meds given as ordered kept pts clean dry and comfortable . will continue to monitor pts.
[2016-10-25] VITALS: BP 112/72
[2016-10-25] MEDS: IV 1/2NS 1000 ML 1,000 ML IV PRN (02:39)
[2016-10-25] MEDS: ACETAMINOPHEN 650 MG/20.3 ML UDC GT PRN ×2 (03:55→17:05)
[2016-10-25 04:00] VITALS: BP 113/71
[2016-10-25] MEDS: TRAMADOL HCL 50 MG TABLET GT SCH ×3 (05:04→20:35)
[2016-10-25] MEDS: PIPERACILLIN /TAZOBACTAM 3.375 G in IV D5W 50 ML IV SCH ×4 (05:04→23:35)
--- NOTE | 2016-10-25 06:08 | NUR ---
lincoln rn notes pts on bed remains on vent simv settings well tolerated , hob elevated ,for aspiration precaution. all due meds given as ordered turned and reposition . v/s stable afebrile, remains on 1/2 ns at 75cc/hr infusing well. on tele st on the monitor . will endorse to rn day shift for continuity of care.
[2016-10-25 06:37] LABS: BASOPHILS % (AUTO) 0.2 % (0.0-2.0); EOSINOPHILS # (AUTO) 0.8 /CMM (0.0-0.7); EOSINOPHILS % (AUTO) 7.2 % (0.0-6.0); HEMATOCRIT 26 % (39-51); HEMOGLOBIN 8.8 g/dL (13.5-17.5); LYMPHOCYTES # (AUTO) 1.5 /CMM (0.8-4.8); LYMPHOCYTES % (AUTO) 12.9 % (20.0-44.0); MEAN CORPUSCULAR HEMOGLOBIN 27 PG (26.0-33.0); MEAN CORPUSCULAR HGB CONC 33 g/dl (31.0-36.0); MEAN CORPUSCULAR VOLUME 82 fL (80-96); MONOCYTES # (AUTO) 1.4 /CMM (0.1-1.30); MONOCYTES % (AUTO) 11.8 % (2.0-12.0); NEUTROPHILS # (AUTO) 7.8 /CMM (1.8-8.9); NEUTROPHILS % (AUTO) 67.9 % (43.0-81.0); PLATELET COUNT (AUTO) 373 /CMM (150-450); RED BLOOD CELL COUNT(AUTO) 3.22 MIL/uL (4.5-6.0); WHITE BLOOD COUNT (AUTO) 11.5 K/uL (4.3-11.0)
[2016-10-25 06:44] LABS: CALCIUM, SERUM 8.9 mg/dL (8.5-10.1); CREATININE 0.6 mg/dL (0.6-1.3); POTASSIUM 3.4 mmol/L (3.5-5.1)
--- NOTE | 2016-10-25 07:30 | NUR ---
INITIAL NOTE Resting in bed on R side. breathing even and unlabored on SIMV. trach patent, suctioned minimal secretions at this time. tele monitor reading ST 105-115. afebrile. skin warm and dry, fan on, reduce metabolic demand 2/2 hyperthermia. opens eyes, does not follow stimulus with eye, appears not oriented to name, non-verbal. contracted x4 extremities. GT patent infusing prescribed feedings, no significant residuals, stoma clean. R subclavian IV without complications, no s/s of infiltration or infection at this time. F/C draining yellow urine, tubing secured, non-pulling. call light in reach.
--- NOTE | 2016-10-25 07:40 | NUR ---
RT PATIENT REC'D TRACHED ON [facility] WITH SETTINGS SET BY MD DEVORA SEARS. VENT ALARMS CHECKED + AUDIBLE. CUFF PRESSURE CHECKED HOOK PULLER. SX'D WITH SMALL AMT PALE SEMI-THICK SECRETIONS. COARSE B/S. PATIENT APPEARS COMFORTABLE AND IN NO DISTRESS AT THIS TIME. AMBU BAG AT HOB. CONT CURRENT PLAN OF CARE. Addendum: 10/26/16 at 1139 by OBDULIO HICKS RT Amended: Links added.
[2016-10-25 08:00] VITALS: BP 104/71
[2016-10-25] MEDS: LACTOBACILLUS RHAMNOSUS GG 1 EACH CAP.SPRINK GT SCH ×2 (08:17→17:06)
[2016-10-25] MEDS: FERROUS SULFATE UDC 300 MG/5 ML UDC GT SCH ×2 (08:17→17:05)
[2016-10-25] MEDS: PANTOPRAZOLE 40 MG/PACK PACK GT SCH (08:18)
[2016-10-25] MEDS: ENOXAPARIN SODIUM 30 MG/0.3 ML DISP.SYRIN SQ SCH (08:19)
[2016-10-25] MEDS: DOCUSATE SODIUM LIQ 100 MG/10 ML UDC GT SCH (08:21)
[2016-10-25] MEDS: NEOMY SULF/BACITRAC ZN/POLY 15 GM TUBE TP SCH (08:22)
[2016-10-25] MEDS: METOPROLOL TARTRATE 25 MG TABLET PO SCH ×2 (08:22→20:34)
[2016-10-25] MEDS ORDERED: POTASSIUM CHLORIDE 20 MEQ POWDER PACKET GT ONE (10:30)
[2016-10-25] MEDS: LORAZEPAM INJ 2 MG/ML VIAL IV PRN ×2 (11:14→17:05)
--- NOTE | 2016-10-25 11:17 | NUR ---
hr 120-130 bpm, ativan 1mg ipv admin
[2016-10-25 12:00] VITALS: BP 93/57
[2016-10-25 16:00] VITALS: BP 120/93
[2016-10-25 20:00] VITALS: BP 117/77
--- NOTE | 2016-10-25 20:30 | NUR ---
COLTEN RN NOTES SPOKE TO KEEGAN WOOD FLOORING SPECIALIST , REMINDING THEM ABT THE ORDER FOR CXRAY HE SAID HES AWARE OF THE ORDER .
--- NOTE | 2016-10-25 20:55 | NUR ---
RN NOTES RECEIVED IN BED WITH NO RESPIRATORY DISTRESS OR SHORTNESS OF BREATH. OBTUNDED, OPENS EYES WITH NO EYE TRACKING. FC PATENT AND INTACT DRAINING CLEAR YELLOW WITH NO FOUL ODOR. PEG TUBE PATENT, NO RESIDUAL NOTED. NOTED RASHES ON MOUTH. IV NS @5CC/HR , TOLERATING WELL. CONTINUOUS MONITORING.
[2016-10-26] VITALS: BP 104/65
[2016-10-26 04:00] VITALS: BP 144/99
[2016-10-26] MEDS: LORAZEPAM INJ 2 MG/ML VIAL IV PRN ×3 (04:37→20:17)
[2016-10-26] MEDS: PIPERACILLIN /TAZOBACTAM 3.375 G in IV D5W 50 ML IV SCH ×3 (05:36→17:00)
[2016-10-26] MEDS: TRAMADOL HCL 50 MG TABLET GT SCH ×3 (05:40→20:10)
--- NOTE | 2016-10-26 06:13 | NUR ---
NO SIGNIFICANT CHANGE OF CONDITION. REMAINS AFEBRILE. VITAL SIGNS STABLE. VENT SETTING ON SIMV WELL TOLERATED. TELE-ST ON THE MONITOR. ENDORSE TO AM SHIFT FOR CONTINUITY OF CARE AND FOLLOW UP CHEST X-RAY.
[2016-10-26 06:38] LABS: BASOPHILS % (AUTO) 0.3 % (0.0-2.0); EOSINOPHILS # (AUTO) 0.9 /CMM (0.0-0.7); HEMATOCRIT 26 % (39-51); HEMOGLOBIN 8.6 g/dL (13.5-17.5); LYMPHOCYTES # (AUTO) 1.7 /CMM (0.8-4.8); LYMPHOCYTES % (AUTO) 17.9 % (20.0-44.0); MEAN CORPUSCULAR HEMOGLOBIN 28 PG (26.0-33.0); MEAN CORPUSCULAR HGB CONC 34 g/dl (31.0-36.0); MEAN CORPUSCULAR VOLUME 82 fL (80-96); MONOCYTES # (AUTO) 1.1 /CMM (0.1-1.30); MONOCYTES % (AUTO) 11.6 % (2.0-12.0); NEUTROPHILS # (AUTO) 5.6 /CMM (1.8-8.9); NEUTROPHILS % (AUTO) 60.2 % (43.0-81.0); PLATELET COUNT (AUTO) 419 /CMM (150-450); RDW COEFFICIENT OF VARIATION 17.6 (11.5-15.0); RED BLOOD CELL COUNT(AUTO) 3.11 MIL/uL (4.5-6.0); WHITE BLOOD COUNT (AUTO) 9.2 K/uL (4.3-11.0)
[2016-10-26 06:53] LABS: CALCIUM, SERUM 8.7 mg/dL (8.5-10.1); CREATININE 0.6 mg/dL (0.6-1.3); MAGNESIUM 1.7 mg/dL (1.8-2.4); POTASSIUM 3.2 mmol/L (3.5-5.1)
[2016-10-26 08:00] VITALS: BP 112/72
--- NOTE | 2016-10-26 08:00 | NUR ---
TD/RN AM SHIFT INITIAL NOTES RECEIVED PT ASLEEP IN BED, NO ACUTE CHANGE OF CONDITION OR FEVER. PT IS OBTUNDED, OPEN EYES. ON VENTILATOR ON SIMV MODE, SET RATES PRESCRIBED, SATURATING @ 100%, SUCTIONED FOR AIRWAY CLEARANCE. LUNG SOUNDS CLEAR. ON TELE WITH SINUS TACHY, HR 112. CENTRAL LINE FLUSHED PATENT, SL. ON GOING GT FEEDING @ 50CC/HR, NO GASTRIC RESIDUAL NOTED. CROOK CATHETER INTACT WITH CLEAR YELLOW URINE OUTPUT. SCHEDULED AM MEDS TO BE GIVEN. PT IS COMFORTABLE. CL WITHIN REACHED AND SAFETY MAINTAINED. ON GOING MONITORING.
--- NOTE | 2016-10-26 08:01 | NUR ---
RT PATIENT REC'D TRACHED ON [facility] WITH SETTINGS SET BY MD DEVORA SEARS. VENT ALARMS CHECKED + AUDIBLE. CUFF PRESSURE CHECKED GRAVURE PRESS SET UP OPERATOR. SX'D WITH SMALL AMT PALE SEMI-THICK SECRETIONS. COARSE B/S. PATIENT APPEARS COMFORTABLE AND IN NO DISTRESS AT THIS TIME. AMBU BAG AT HOB. CONT CURRENT PLAN OF CARE. Addendum: 10/26/16 at 1139 by OBDULIO HICKS RT Amended: Links added.
[2016-10-26] MEDS: ENOXAPARIN SODIUM 30 MG/0.3 ML DISP.SYRIN SQ SCH (08:37)
[2016-10-26] MEDS: LACTOBACILLUS RHAMNOSUS GG 1 EACH CAP.SPRINK GT SCH ×2 (08:38→16:18)
[2016-10-26] MEDS: FERROUS SULFATE UDC 300 MG/5 ML UDC GT SCH ×2 (08:38→16:18)
[2016-10-26] MEDS: DOCUSATE SODIUM LIQ 100 MG/10 ML UDC GT SCH (08:38)
[2016-10-26] MEDS: METOPROLOL TARTRATE 25 MG TABLET PO SCH ×2 (08:38→20:10)
[2016-10-26] MEDS: NEOMY SULF/BACITRAC ZN/POLY 15 GM TUBE TP SCH (08:39)
[2016-10-26] MEDS: PANTOPRAZOLE 40 MG/PACK PACK GT SCH (08:41)
[2016-10-26] MEDS ORDERED: IV NS 0.9% 500 ML IV ONE (09:32)
[2016-10-26] MEDS ORDERED: IV SET PRIMARY PUMP SET 1 EA INFUS.SET MC ONE (09:33)
[2016-10-26] MEDS ORDERED: SECONDARY IV SET 1 EA INFUS.SET MC ONE (09:33)
[2016-10-26] MEDS: Magnesium 1GM/D5W 100ML PREMIX 100 ML IV SCH ×2 (09:41→11:20)
[2016-10-26] MEDS: POTASSIUM CHLORIDE 20 MEQ POWDER PACKET NG SCH ×2 (10:04→11:20)
[2016-10-26 12:00] VITALS: BP 133/76
[2016-10-26] MEDS: FIBERSOURCE HN 1,000 ML BOTTLE GT PRN (12:29)
--- NOTE | 2016-10-26 15:37 | NUR ---
TD/RN ROUNDS NO ACUTE CHANGE OF CONDITION. PT SUCTIONED FOR AIRWAY CLEARANCE. PT'S SISTER AT BEDSIDE. PT REQUESTING ONLY GIVE INFORMATION OR UPDATE REGARDING THE PT ONLY TO HER. NOTED. ON GOING MONITORING.
[2016-10-26 16:00] VITALS: BP_SYST 115; BP_DIAS 78; BP_DIAS 82
--- NOTE | 2016-10-26 19:15 | NUR ---
TD/RN AM SHIFT END NOTES NO ACUTE CHANGE OF CONDITION NOTED DURING THE SHIFT. NEEDS MET. PT ENDORSED TO PM NURSE TO CONTINUE CARE. CL WITHIN REACHED AND SAFETY MAINTAINED.
[2016-10-26 20:00] VITALS: BP 131/88
--- NOTE | 2016-10-26 20:00 | NUR ---
RN NOTES RT ABHIJEET AT BEDSIDE, VENT SETTINGS CHANGED FROM SIMV OF 14 TO AC OF 14 DUE TO LABORED BREATHING, TACHYPNEA, PATIENT ALSO TACHYCARDIC. WILL GIVE ANTIANXIETY MEDICATION TOO
[2016-10-27] VITALS: BP 137/92
[2016-10-27] MEDS: LORAZEPAM INJ 2 MG/ML VIAL IV PRN ×3 (00:19→06:15)
[2016-10-27] MEDS: ACETAMINOPHEN 650 MG/20.3 ML UDC GT PRN ×3 (00:21→20:25)
--- NOTE | 2016-10-27 00:30 | NUR ---
RN NOTES PATIENT NOTED TO HAVE 1 EPISODE OF EMESIS. ZOFRAN ADMINISTERED PRESCRIBED. ATIVAN 1MG ALSO ADMISNISTERED, PATIENT SHOWING NONVERBAL S/S OF AGITATION, INCLUDING TACHYPNEA AND AND TACHYCARDIA. WILL CONTINUE TO CLOSELY MONITOR, TUBE FEEDING PLACED ON HOLD TEMPORARILY
[2016-10-27] MEDS: PIPERACILLIN /TAZOBACTAM 3.375 G in IV D5W 50 ML IV SCH ×4 (00:31→18:08)
[2016-10-27 04:00] VITALS: BP 118/80
[2016-10-27] MEDS: MORPHINE SULFATE INJ 2 MG/ML DISP.SYRIN IV PRN (05:15)
--- NOTE | 2016-10-27 05:17 | NUR ---
RN NOTES PATIENT TACHYPNEIC AND TACHYCARDIC, HR IN THE 140s RANGE. BP 121/67. ADMINISTERED ATIVAN 1MG AND MORPHINE 2MG. WILL MONITOR CLOSELY FOR EFFECTIVENESS OF MEDICATION
[2016-10-27] MEDS: TRAMADOL HCL 50 MG TABLET GT SCH ×3 (05:30→22:10)
[2016-10-27] MEDS: FIBERSOURCE HN 1,000 ML BOTTLE GT PRN (05:31)
--- NOTE | 2016-10-27 06:04 | NUR ---
RN NOTES SPOKE TO LINDA HUYNH AND NOTIFIED REGARDING CURRENT HR OF 145, SUSTAINED DESPITE ADMINISTRATION OF MORPHINE 2MG IVP, ATIVAN 1MG IVP, AND ULTRAM 50MG GT. NO NEW ORDERS RECEIVED. WILL CONTINUE TO CLOSELY MONITOR
--- NOTE | 2016-10-27 06:15 | NUR ---
RN NOTES TEMP 98.9. TYLENOL ADMINISTERED. WILL MONITOR CLOSELY
--- NOTE | 2016-10-27 07:00 | NUR ---
RN NOTES PATIENT IN BED, HR SUSTAINED 140s, TYLENOL GIVEN @ 0615. VENT SETTINGS PRESCRIBED, CONTINUES ON AC @ 14. PATIENT ENDORSED TO THE DAY SHIFT NURSE FOR ASHELY
--- NOTE | 2016-10-27 07:36 | NUR ---
PT RECEIVED ON MECHANICAL VENT W/ SETTINGS AC 14 500 40% PEEP 0. VENT IN RED OUTLET, VENT ALARMS CHECKED AND AUDIBLE, AMBUBAG AT BEDSIDE. PT SX'ED AND LAVAGED TO MOD AMOUNTS OF THICK PALE YELLOW SECRETIONS. PT CONTINUES TO HAVE INCREASED HR > 130 AND FEVER. RN AT BEDSIDE AND AWARE. BREATH SOUNDS DIMINISHED BILATERALLY. PORTEX 7 CUFFED, PATENT AND SECURED. PLAN IS TO CONTINUE CARE W/ CURRENT MD ORDERS AND MONITOR FOR CHANGES. Addendum: 10/27/16 at 0821 by GIOVANNI MCMAHON RT Amended: Links added.
[2016-10-27 08:00] VITALS: BP 124/83
--- NOTE | 2016-10-27 08:00 | NUR ---
TD/RN AM SHIFT INITIAL NOTES RECEIVED PT AWAKE IN BED, OPEN EYES, PT IS OBTUNDED. PT NOTED WITH INCREASED HEART RATE, 154 AND FEVER 102.7. WITH ON GOING ADMINISTRATION OF COOLING MEASURES. ON VENTILATOR ON AC MODE, SATURATING @ 98%, SUCTIONED FOR AIRWAY CLEARANCE. LUNG SOUNDS DIMINISHED. ON TELE WITH SINUS TACHY. CENTRAL LINE FLUSHED PATENT, SL. ON GOING GT FEEDING @ 50CC/HR, NO GASTRIC RESIDUAL NOTED. CROOK CATHETER INTACT WITH CLEAR YELLOW URINE OUTPUT. SCHEDULED AM MEDS TO BE GIVEN. CL WITHIN REACHED AND SAFETY MAINTAINED. ON GOING MONITORING.
[2016-10-27] MEDS: LACTOBACILLUS RHAMNOSUS GG 1 EACH CAP.SPRINK GT SCH ×2 (08:52→18:08)
[2016-10-27] MEDS: ENOXAPARIN SODIUM 30 MG/0.3 ML DISP.SYRIN SQ SCH (08:52)
[2016-10-27] MEDS: FERROUS SULFATE UDC 300 MG/5 ML UDC GT SCH ×2 (08:53→18:08)
[2016-10-27] MEDS: PANTOPRAZOLE 40 MG/PACK PACK GT SCH (08:54)
[2016-10-27] MEDS: DOCUSATE SODIUM LIQ 100 MG/10 ML UDC GT SCH (08:54)
[2016-10-27] MEDS: METOPROLOL TARTRATE 25 MG TABLET PO SCH ×2 (08:55→21:00)
[2016-10-27] MEDS: NEOMY SULF/BACITRAC ZN/POLY 15 GM TUBE TP SCH (08:55)
--- NOTE | 2016-10-27 09:00 | NUR ---
TD/RN TEMP CHECK TEMPERATURE RE-CHECKED. 97.7. ON GOING MONITORING.
[2016-10-27 12:00] VITALS: BP 113/84
--- NOTE | 2016-10-27 12:00 | NUR ---
TELE1/RN NOON ROUNDS SUCTIONED FOR AIRWAY CLEARANCE. NOTED NO FEVER OR ACUTE CHANGE OF CONDITION. MONITORING CONTINUED.
[2016-10-27 13:17] LABS: BASOPHILS # (AUTO) 0.1 /CMM (0.0-0.2); BASOPHILS % (AUTO) 0.5 % (0.0-2.0); EOSINOPHILS # (AUTO) 0.4 /CMM (0.0-0.7); EOSINOPHILS % (AUTO) 2.6 % (0.0-6.0); HEMATOCRIT 30 % (39-51); HEMOGLOBIN 9.8 g/dL (13.5-17.5); LYMPHOCYTES # (AUTO) 1.2 /CMM (0.8-4.8); LYMPHOCYTES % (AUTO) 8.1 % (20.0-44.0); MEAN CORPUSCULAR HEMOGLOBIN 27 PG (26.0-33.0); MEAN CORPUSCULAR HGB CONC 33 g/dl (31.0-36.0); MEAN CORPUSCULAR VOLUME 81 fL (80-96); MONOCYTES # (AUTO) 1.1 /CMM (0.1-1.30); MONOCYTES % (AUTO) 7.3 % (2.0-12.0); NEUTROPHILS # (AUTO) 12.1 /CMM (1.8-8.9); NEUTROPHILS % (AUTO) 81.5 % (43.0-81.0); PLATELET COUNT (AUTO) 448 /CMM (150-450); RDW COEFFICIENT OF VARIATION 17.7 (11.5-15.0); RED BLOOD CELL COUNT(AUTO) 3.67 MIL/uL (4.5-6.0); WHITE BLOOD COUNT (AUTO) 14.9 K/uL (4.3-11.0)
[2016-10-27 13:30] LABS: CALCIUM, SERUM 8.9 mg/dL (8.5-10.1); CREATININE 0.7 mg/dL (0.6-1.3); POTASSIUM 3.5 mmol/L (3.5-5.1)
[2016-10-27 16:00] VITALS: BP 97/62
--- NOTE | 2016-10-27 17:30 | NUR ---
TELE1/RM AFTERNOON ROUNDS PM CARE PROVIDED. NO CHANGE OF CONDITION. MONITORING CONTINUED.
--- NOTE | 2016-10-27 19:20 | NUR ---
REGULAR SENIOR CARE PROVIDER INITIAL NOTE: RECEIVED PT IN NO ACUTE DISTRESS. PT IS OBTUNDED AND AWAKE. PT IS MECHANICAL VENT VIA TRACH. TRACH SITE IS CLEAN DRY AND INTACT. PT IS TOLERATING VENT SETTINGS WELL WITH 02 SATURATION AT 98%. PT IS ON TELE WITH ST OF 112. PT HAS A GTUBE THAT IS CLEAN DRY AND INTACT AND PATENT WITH FIBERSOURCE RUNNING @50CC/HR. PT IS TOLERATING GTUBE SETTINGS WELL WITH 10CC OF RESIDUAL. PT HAS A F/C THAT IS CLEAN DRY AND INTACT WITH CLEAR YELLOW URINE DRAINING. PT HAS A R SUBCLAVIAN INTACT AND CLEAN. BED IN LOCK POSITION WITH RAILS X2. CALL LIGHT WITHIN REACH AND SAFETY/COMFORT MEASURES ENSURED. WILL CONTINUE TO MONITOR PT FOR CHANGES. Addendum: 10/27/16 at 2332 by ELMER CAGLE RN TIME WAS 1930
--- NOTE | 2016-10-27 19:26 | NUR ---
TELE1/RN AM SHIFT END NOTES ALL NEEDS MET. NO EPISODE OF FEVER SINCE FEVER BROKE THIS MORNING. PT ENDORSED TO PM NURSE TO CONTINUE CARE. CL WITHIN REACHED AND SAFETY MAINTAINED.
[2016-10-27 20:00] VITALS: BP 108/72
--- NOTE | 2016-10-27 20:10 | NUR ---
RN NOTE PT HAD TEMP OF 100.7 SO TYLENOL 650MG WAS GIVEN VIA GTUBE. WILL MONITOR FOR CHANGES
--- NOTE | 2016-10-27 21:00 | NUR ---
RN NOTE PT HAD RECTAL TEMP OF 98.7. WILL CONTINUE TO MONITOR FOR CHANGES.
[2016-10-27] MEDS ORDERED: SECONDARY IV SET 1 EA INFUS.SET MC ONE (23:42)
[2016-10-28] VITALS (7 sets, daily range): BP systolic 89–125; BP diastolic 50–82
[2016-10-28] MEDS: PIPERACILLIN /TAZOBACTAM 3.375 G in IV D5W 50 ML IV SCH ×2 (00:20→05:22)
[2016-10-28] MEDS: LORAZEPAM INJ 2 MG/ML VIAL IV PRN ×3 (00:27→19:20)
[2016-10-28] MEDS ORDERED: IBUPROFEN 600 MG TABLET PO ONE (01:15)
[2016-10-28] MEDS: ACETAMINOPHEN 650 MG/SUPP.RECT RC PRN (01:23)
--- NOTE | 2016-10-28 01:25 | NUR ---
RN NOTE RECTAL TEMP 102.3. AMANDA HUYNH ORDERD 600MG MOTRIN X1 NOW. ADMINISTERED ORDERED. WILL CONTINUE TO MONITOR FOR FEVER.
[2016-10-28] MEDS ORDERED: IBUPROFEN 400 MG TABLET PO PRN (01:30)
--- NOTE | 2016-10-28 01:30 | NUR ---
RN NOTE RECEIVED ORDERS FROM DR. HUYNH TO GIVE PT 600MG MOTRIN VIA GTUBE BECAUSE PT TEMP IS 102.2. WILL CONTINUE TO MONITOR PT TEMP.
[2016-10-28] MEDS: ACETAMINOPHEN 650 MG/20.3 ML UDC GT PRN ×2 (03:15→19:33)
--- NOTE | 2016-10-28 03:30 | NUR ---
RN NOTE SPOKE WITH DR HUYNH BECAUSE PT TEMP INCREASED FROM 102.2 TO 104.4 POST MOTRIN AND TYLENOL ADMINISTRATION. RECEIVED VERBAL ORDERS TO PLACE COOLING BLANKET AND TWO SETS OF BLOOD CULTURES VIA PICC AND PERIPHERAL SITES.
[2016-10-28] MEDS: TRAMADOL HCL 50 MG TABLET GT SCH ×3 (05:21→20:17)
--- NOTE | 2016-10-28 07:08 | NUR ---
SPINNING FRAME CLEANER CLOSING NOTE: PT REMAINS IN NO ACUTE DISTRESS AT END OF SHIFT. PT WAS FEBRILE TRENDING TO A HIGH OF 104. ALL NEW ORDERS WERE CARRIED OUT ACCORDINGLY. CURRENTLY WITH A TEMP OF 99.3. PICC LINE PLACED IN RIGHT SIDE OF NECK AT APPROXIMATELY 0610 BY MD HUYNH. WILL ENDORSE CARE TO AM RN FOR CONTINUITY OF CARE. ALL DUE MEDICATIONS TOLERATED WELL. PT BED IN LOW POSITION WITH X2 RAILS UP IN COMFORTABLE POSITION.
--- NOTE | 2016-10-28 07:45 | NUR ---
RN NOTES: INITIAL NOTES: PT RECEIVED OBTUNDED, WITH OPEN EYES. RESPONSIVE TO PAINFUL STIMULI. ON VENT TRAC, SETTINGS TOLERATING WELL. ON TELE MONITOR SINUS TACHY 110s. CONTINUE TO MONITOR FOR BODY TEMPERATURE, RECEIVED WITH HYPOTHERMIA BLANKET/COOLING MEASURES. RECTAL PROBE BODY TEMP 98.9. ON TUBE FEEDING ORDERED, TOLERATING WELL. CONTINUE ON ASPIRATION PRECAUTIONS. SAFETY MEASURES OBSERVED. CONTINUE TO MONITOR. CONTINUE TO MONITOR S/P NEW PICC LINE INSERTION RIGHT SIDE NECK. NO S/S OF BLEEDING NOTED.
[2016-10-28] MEDS ORDERED: IBUPROFEN SUSP 100 MG/5 ML UDC GT PRN (08:36)
[2016-10-28] MEDS: METOPROLOL TARTRATE 25 MG TABLET PO SCH ×2 (09:00→20:19)
[2016-10-28] MEDS: PANTOPRAZOLE 40 MG/PACK PACK GT SCH (09:10)
[2016-10-28] MEDS: DOCUSATE SODIUM LIQ 100 MG/10 ML UDC GT SCH (09:10)
[2016-10-28] MEDS: LACTOBACILLUS RHAMNOSUS GG 1 EACH CAP.SPRINK GT SCH ×2 (09:10→16:50)
[2016-10-28] MEDS: FERROUS SULFATE UDC 300 MG/5 ML UDC GT SCH ×2 (09:10→16:50)
[2016-10-28] MEDS: NEOMY SULF/BACITRAC ZN/POLY 15 GM TUBE TP SCH (09:11)
[2016-10-28] MEDS: ACYCLOVIR 800 MG TABLET GT SCH ×2 (09:20→16:50)
[2016-10-28] MEDS ORDERED: FEE PK DOSING 1 MIN EA MC ONE (10:40)
[2016-10-28] MEDS ORDERED: VANCOMYCIN 500 MG in IV D5W 100 ML IV SCH (11:00)
[2016-10-28] MEDS ORDERED: SECONDARY IV SET 1 EA INFUS.SET MC ONE (11:38)
[2016-10-28 12:31] LABS: APPEARANCE,URINE CLEAR (CLEAR); BILIRUBIN,URINE NEGATIVE (NEGATIVE); BLOOD, URINE NEGATIVE Ery/uL (NEGATIVE); COLOR,URINE YELLOW (YELLOW); KETONES,URINE NEGATIVE (NEGATIVE); LEUKOCYTE ESTERASE ,URINE NEGATIVE (NEGATIVE); NITRITE, URINE NEGATIVE (NEGATIVE); PH,URINE 5.5 (5.0-8.0); PROTEIN,URINE NEGATIVE (NEGATIVE); UGLUCOSE NEGATIVE (NEGATIVE); UROBILINOGEN,URINE 0.2 EU/dL (0.2)
[2016-10-28] MEDS: MEROPENEM 1 G in IV NS 0.9% 100 ML IV SCH ×2 (13:11→20:16)
[2016-10-28] MEDS: VANCOMYCIN 500 MG in IV D5W 100 ML IV SCH (19:33)
[2016-10-29] VITALS: BP 107/68
[2016-10-29] MEDS: VANCOMYCIN 500 MG in IV D5W 100 ML IV SCH ×3 (03:26→20:04)
[2016-10-29 04:00] VITALS: BP 115/71
[2016-10-29] MEDS: TRAMADOL HCL 50 MG TABLET GT SCH ×3 (05:32→21:12)
[2016-10-29] MEDS: MEROPENEM 1 G in IV NS 0.9% 100 ML IV SCH ×3 (05:32→21:13)
[2016-10-29] MEDS: IV NS 0.9% 250 ML IV PRN (05:33)
[2016-10-29] MEDS: FIBERSOURCE HN 1,000 ML BOTTLE GT PRN (05:34)
[2016-10-29 06:41] LABS: BASOPHILS % (AUTO) 0.2 % (0.0-2.0); EOSINOPHILS # (AUTO) 0.5 /CMM (0.0-0.7); EOSINOPHILS % (AUTO) 2.8 % (0.0-6.0); HEMATOCRIT 25 % (39-51); HEMOGLOBIN 8.5 g/dL (13.5-17.5); LYMPHOCYTES # (AUTO) 1.8 /CMM (0.8-4.8); MEAN CORPUSCULAR HEMOGLOBIN 27 PG (26.0-33.0); MEAN CORPUSCULAR HGB CONC 33 g/dl (31.0-36.0); MEAN CORPUSCULAR VOLUME 82 fL (80-96); MONOCYTES # (AUTO) 1.5 /CMM (0.1-1.30); MONOCYTES % (AUTO) 7.5 % (2.0-12.0); NEUTROPHILS # (AUTO) 15.9 /CMM (1.8-8.9); NEUTROPHILS % (AUTO) 80.5 % (43.0-81.0); PLATELET COUNT (AUTO) 413 /CMM (150-450); RED BLOOD CELL COUNT(AUTO) 3.12 MIL/uL (4.5-6.0); WHITE BLOOD COUNT (AUTO) 19.7 K/uL (4.3-11.0)
[2016-10-29 06:55] LABS: CALCIUM, SERUM 8.8 mg/dL (8.5-10.1); CREATININE 0.5 mg/dL (0.6-1.3); MAGNESIUM 1.7 mg/dL (1.8-2.4); POTASSIUM 3.3 mmol/L (3.5-5.1)
--- NOTE | 2016-10-29 07:20 | NUR ---
RN INITIAL NOTE RECEIVED REPORT FROM BRIGIDO RN PM NURSE FOR ASHELY. VENT SETTING PORTEX #7,AC 14,TV 500 FI02 40% .PT OBTUNDED. TELE ST 123. GTF PLACEMENT CK FIBERSOURCE 50 ML/HR. IV RIJ TLC FLUSHED, PATENT AND INTACT. WILL CONTINUE TO MONITOR. ALL SAFETY MEASURES IN PLACE.
--- NOTE | 2016-10-29 07:38 | NUR ---
RT PT RECEIVED TRACHED ON THE VENT WITH NOTED SETTINGS. PT IS AWAKE BUT DOES NOT FOLLOW COMMANDS. VENT ALARMS ARE SET AND AUDIBLE WITH BVM BY BEDSIDE. CONFIGURATION MANAGER CUFF PRESSURE NOTED. VENT IS PLUGGED INTO RED OUTLET. NO RESPIRATORY DISTRESS NOTED AT THIS TIME, WILL CONTINUE TO MONITOR. Addendum: 10/29/16 at 0958 by JUAN JOSÉ HEREDIA RT Amended: Links added.
[2016-10-29 08:00] VITALS: BP 104/67
[2016-10-29] MEDS: LACTOBACILLUS RHAMNOSUS GG 1 EACH CAP.SPRINK GT SCH ×2 (08:26→16:08)
[2016-10-29] MEDS: FERROUS SULFATE UDC 300 MG/5 ML UDC GT SCH ×2 (08:26→16:08)
[2016-10-29] MEDS: PANTOPRAZOLE 40 MG/PACK PACK GT SCH (08:26)
[2016-10-29] MEDS: DOCUSATE SODIUM LIQ 100 MG/10 ML UDC GT SCH (08:26)
[2016-10-29] MEDS: ACYCLOVIR 800 MG TABLET GT SCH ×2 (08:29→16:08)
[2016-10-29] MEDS: NEOMY SULF/BACITRAC ZN/POLY 15 GM TUBE TP SCH (08:29)
[2016-10-29] MEDS: METOPROLOL TARTRATE 25 MG TABLET PO SCH ×2 (08:32→21:12)
[2016-10-29 08:48] LABS: BAND % (MANUAL) 1 % (0.0-5.0); EOSINOPHILS % (MANUAL) 1 % (0-4); LYMPHOCYTES % (MANUAL) 10 % (16-48); MONOCYTES % (MANUAL) 4 % (0-11.0); NEUTROPHILS % (MANUAL) 84 (42-76)
[2016-10-29] MEDS ORDERED: SECONDARY IV SET 1 EA INFUS.SET MC ONE ×3 (11:21→15:55)
[2016-10-29] MEDS: POTASSIUM CL. PREMIX PERIPHER. 50 ML IV SCH ×4 (11:32→18:08)
[2016-10-29] MEDS ORDERED: IV SET PRIMARY PUMP SET 1 EA INFUS.SET MC ONE ×2 (11:40→12:42)
[2016-10-29] MEDS: Magnesium 1GM/D5W 100ML PREMIX 100 ML IV SCH ×2 (11:41→16:35)
[2016-10-29 12:00] VITALS: BP 105/62
[2016-10-29] MEDS ORDERED: IV NS 0.9% 250 ML IV ONE (12:43)
[2016-10-29 16:00] VITALS: BP 108/75
[2016-10-29] MEDS ORDERED: Magnesium 1GM/D5W 100ML PREMIX 100 ML IV SCH (16:30)
--- NOTE | 2016-10-29 16:36 | NUR ---
RN NOTE 3 REPLACEMENT BAGS OF MAG GIVEN. CALLED PHARMACY TO RE ENTER LAST BAG.
--- NOTE | 2016-10-29 19:30 | NUR ---
RN CLOSING NOTE REPORT GIVEN TO STEPHANY RN PM NURSE FOR ASHELY. VENT SETTING PORTEX #7,AC 14,TV 500 FI02 40% .PT OBTUNDED OPENS EYES. TELE ST THROUGH OUT SHIFT . GTF FIBERSOURCE 50 ML/HR NO RESIDUAL THROUGH OUT SHIFT. IV RIJ TLC FLUSHED, PATENT AND INTACT. ALL MEDICATIONS GIVEN ALL ORDERS CARRIED OUT. ALL SAFETY MEASURES IN PLACE.
[2016-10-29 20:00] VITALS: BP 118/71
--- NOTE | 2016-10-29 20:00 | NUR ---
TELE 1 RN NOTE PT IN BED OBTUNDED, EYES OPEN. ON TRACH/VENT TOLERATING THE SETTINGS WELLS. SUCTIONED HIM FREQUENTLY MODERATE AMOUNT OF WHITE THICK SECRETIONS NOTED. ON TELE S TACH HR 113. GT FEEDING INFUSING WELL, 0 ML RESIDUAL NOTED. KEPT HOB ELEVATED. REPOSITION HIM Q2H. KEPT HIM DRY AND CLEAN. F/C INTACT AND PATENT DRAINING YELLOWISH COLOR URINE. SIDE RAILS UP X 3 AND CALL LIGHT WITHIN REACH. VSS. CONTINUE TO MONITOR HIM.
[2016-10-30] VITALS: BP 102/61
[2016-10-30 04:00] VITALS: BP 120/73
[2016-10-30] MEDS: VANCOMYCIN 500 MG in IV D5W 100 ML IV SCH ×3 (04:41→20:09)
[2016-10-30] MEDS: TRAMADOL HCL 50 MG TABLET GT SCH ×3 (05:34→20:58)
[2016-10-30] MEDS: FIBERSOURCE HN 1,000 ML BOTTLE GT PRN (05:34)
[2016-10-30] MEDS: MEROPENEM 1 G in IV NS 0.9% 100 ML IV SCH ×3 (05:35→20:59)
[2016-10-30 06:33] LABS: BASOPHILS % (AUTO) 0.2 % (0.0-2.0); EOSINOPHILS # (AUTO) 0.6 /CMM (0.0-0.7); EOSINOPHILS % (AUTO) 4.6 % (0.0-6.0); HEMATOCRIT 26 % (39-51); HEMOGLOBIN 8.9 g/dL (13.5-17.5); LYMPHOCYTES # (AUTO) 1.9 /CMM (0.8-4.8); LYMPHOCYTES % (AUTO) 14.3 % (20.0-44.0); MEAN CORPUSCULAR HEMOGLOBIN 27 PG (26.0-33.0); MEAN CORPUSCULAR HGB CONC 34 g/dl (31.0-36.0); MEAN CORPUSCULAR VOLUME 81 fL (80-96); MONOCYTES % (AUTO) 7.8 % (2.0-12.0); NEUTROPHILS # (AUTO) 9.5 /CMM (1.8-8.9); NEUTROPHILS % (AUTO) 73.1 % (43.0-81.0); PLATELET COUNT (AUTO) 427 /CMM (150-450); RDW COEFFICIENT OF VARIATION 16.9 (11.5-15.0); RED BLOOD CELL COUNT(AUTO) 3.25 MIL/uL (4.5-6.0); WHITE BLOOD COUNT (AUTO) 12.9 K/uL (4.3-11.0)
--- NOTE | 2016-10-30 06:57 | NUR ---
TELE 1 RN NOTE PT IN BED OBTUNDED, EYES OPEN. ON TRACH/VENT TOLERATING THE SETTINGS WELLS. SUCTIONED HIM FREQUENTLY MODERATE AMOUNT OF WHITE THICK SECRETIONS NOTED. ON TELE S TACH HR 104. GT FEEDING INFUSING WELL, 0 ML RESIDUAL NOTED. KEPT HOB ELEVATED. REPOSITION HIM Q2H. KEPT HIM DRY AND CLEAN. F/C INTACT AND PATENT DRAINING YELLOWISH COLOR URINE. SIDE RAILS UP X 3 AND CALL LIGHT WITHIN REACH. VSS. WILL ENDORSE TO DAY SHIFT NURSE FOR CONTINUE TO CARE.
[2016-10-30 06:59] LABS: CREATININE 0.6 mg/dL (0.6-1.3); PHOSPHORUS 2.9 mg/dL (2.5-4.9); POTASSIUM 3.8 mmol/L (3.5-5.1)
--- NOTE | 2016-10-30 07:06 | NUR ---
RN NOTE RECEIVED PT ON BED , OBTUNDED, EYES OPEN. VENT DEPENDENT , TOLERATING THE CURRENT SETTINGS WELLS.TRACH CARE DONE, ON TELE S TACH HR 105, FIBERSOURCE RUNNING VIA GT AT 55 CC/HR , NO RESIDUAL NOTED , HOB ELEVATED F/C INTACT AND PATENT DRAINING YELLOWISH COLOR URINE. SIDE RAILS UP X 3 AND CALL LIGHT WITHIN REACH. CONTINUE TO MONITOR PT CLOSELY AN NOTIFY MD FOR ANY SIGNIFICANT CHANGES.
--- NOTE | 2016-10-30 07:45 | NUR ---
Received male kirti pt on mechanical vent. Pt kirti is secure. Vent is plugged into a red outlet, alarms are set and audible, and BVM is at bedside. Addendum: 10/30/16 at 0746 by SHANA KEARNEY RT Amended: Links added.
[2016-10-30 08:00] VITALS: BP 121/80
[2016-10-30] MEDS: LACTOBACILLUS RHAMNOSUS GG 1 EACH CAP.SPRINK GT SCH ×2 (08:17→16:35)
[2016-10-30] MEDS: PANTOPRAZOLE 40 MG/PACK PACK GT SCH (08:17)
[2016-10-30] MEDS: DOCUSATE SODIUM LIQ 100 MG/10 ML UDC GT SCH (08:17)
[2016-10-30] MEDS: FERROUS SULFATE UDC 300 MG/5 ML UDC GT SCH ×2 (08:17→16:35)
[2016-10-30] MEDS: METOPROLOL TARTRATE 25 MG TABLET PO SCH ×2 (08:18→20:58)
[2016-10-30] MEDS: NEOMY SULF/BACITRAC ZN/POLY 15 GM TUBE TP SCH (08:21)
[2016-10-30] MEDS: ACYCLOVIR 800 MG TABLET GT SCH ×2 (08:22→16:35)
[2016-10-30 12:00] VITALS: BP 123/77
--- NOTE | 2016-10-30 12:00 | NUR ---
RN NOTES TRACH SUCTIONING DONE , VSS STABLE , TOLERATING TF WELL, NO RESIDUAL NOTED, CONTINUE TO MONITOR .
[2016-10-30 16:00] VITALS: BP 127/81
--- NOTE | 2016-10-30 18:00 | NUR ---
RN NOTES PT AT REST , TOLERATING CURRENT VENT SETTING WELL, NO TF RESIDUAL NOTED, R IJ TLC SITE CDI, PT MEDICATED PER MD ORDER , SR UP x3, CALL LIGHT WITHIN EASY REACH , NO SIGNIFICANT CHANGES NOTED ON THIS SHIFT
[2016-10-30 20:00] VITALS: BP 130/81
--- NOTE | 2016-10-30 20:00 | NUR ---
TELE 1 RN NOTE PT IN BED OBTUNDED, EYES OPEN. ON TRACH/VENT TOLERATING THE SETTINGS WELLS. SUCTIONED HIM FREQUENTLY MODERATE AMOUNT OF WHITISH THICK SECRETIONS NOTED. ON TELE S TACH HR 128. GT FEEDING INFUSING WELL, 0 ML RESIDUAL NOTED. KEPT HOB ELEVATED. REPOSITION HIM Q2H. KEPT HIM DRY AND CLEAN. F/C INTACT AND PATENT DRAINING YELLOWISH COLOR URINE. SIDE RAILS UP X 3 AND CALL LIGHT WITHIN REACH. VSS. CONTINUE TO MONITOR HIM.
[2016-10-30] MEDS: IV NS 0.9% 250 ML IV PRN (20:09)
[2016-10-31] VITALS: BP 133/89
[2016-10-31 04:00] VITALS: BP 119/80
[2016-10-31] MEDS: VANCOMYCIN 500 MG in IV D5W 100 ML IV SCH (04:13)
[2016-10-31] MEDS: FIBERSOURCE HN 1,000 ML BOTTLE GT PRN (04:18)
[2016-10-31] MEDS: MEROPENEM 1 G in IV NS 0.9% 100 ML IV SCH (05:16)
[2016-10-31] MEDS: TRAMADOL HCL 50 MG TABLET GT SCH ×3 (05:17→20:26)
--- NOTE | 2016-10-31 06:41 | NUR ---
TELE 1 RN NOTE PT IN BED OBTUNDED. NO DISTRESS OR DISCOMFORT NOTED. TOLERATING VENT SETTINGS WELL. SUCTIONED HIM FREQUENTLY. SL INTACT AND PATENT. ON TELE S TACH HR 118. F/C INTACT AND PATENT DRAINING WELL. KEPT HIM DRY AND CLEAN. REPOSITION HIM Q2H, ALL NEEDS ATTENDED. SIDE RAILS UP X 2 AND CALL LIGHT WITHIN REACH. WILL ENDORSE TO DAY SHIFT NURSE FOR CONTINUE TO CARE.
[2016-10-31 07:13] LABS: BASOPHILS % (AUTO) 0.2 % (0.0-2.0); EOSINOPHILS # (AUTO) 0.7 /CMM (0.0-0.7); EOSINOPHILS % (AUTO) 4.9 % (0.0-6.0); HEMATOCRIT 28 % (39-51); HEMOGLOBIN 9.6 g/dL (13.5-17.5); LYMPHOCYTES % (AUTO) 13.9 % (20.0-44.0); MEAN CORPUSCULAR HEMOGLOBIN 28 PG (26.0-33.0); MEAN CORPUSCULAR HGB CONC 34 g/dl (31.0-36.0); MEAN CORPUSCULAR VOLUME 81 fL (80-96); MONOCYTES # (AUTO) 1.2 /CMM (0.1-1.30); MONOCYTES % (AUTO) 8.7 % (2.0-12.0); NEUTROPHILS # (AUTO) 10.3 /CMM (1.8-8.9); NEUTROPHILS % (AUTO) 72.3 % (43.0-81.0); PLATELET COUNT (AUTO) 499 /CMM (150-450); RDW COEFFICIENT OF VARIATION 17.1 (11.5-15.0); RED BLOOD CELL COUNT(AUTO) 3.49 MIL/uL (4.5-6.0); WHITE BLOOD COUNT (AUTO) 14.2 K/uL (4.3-11.0)
--- NOTE | 2016-10-31 07:30 | NUR ---
INITIAL NOTE Resting in bed on R side. breathing even and unlabored on AC. trach patent, suctioned minimal secretions at this time. tele monitor reading ST 110-125. afebrile. skin warm and dry, fan on, reduce metabolic demand 2/2 hyperthermia. opens eyes, does not follow stimulus with eye, appears not oriented to name, non-verbal. contracted x4 extremities. GT patent infusing prescribed feedings, no significant residuals, stoma clean. R subclavian IV without complications, no s/s of infiltration or infection at this time. F/C draining yellow urine, tubing secured, non-pulling. call light in reach.
[2016-10-31 07:52] LABS: ALBUMIN 2.2 g/dL (3.4-5.0); BILIRUBIN,TOTAL 0.2 mg/dL (0.2-1.0); CALCIUM, SERUM 9.1 mg/dL (8.5-10.1); CREATININE 0.7 mg/dL (0.6-1.3); POTASSIUM 3.7 mmol/L (3.5-5.1); TOTAL PROTEIN, SERUM 8.2 g/dL (6.4-8.2)
[2016-10-31 08:00] VITALS: BP 140/86
[2016-10-31] MEDS: FERROUS SULFATE UDC 300 MG/5 ML UDC GT SCH ×2 (08:58→16:08)
[2016-10-31] MEDS: PANTOPRAZOLE 40 MG/PACK PACK GT SCH (08:58)
[2016-10-31] MEDS: LACTOBACILLUS RHAMNOSUS GG 1 EACH CAP.SPRINK GT SCH ×2 (08:58→16:07)
[2016-10-31] MEDS: DOCUSATE SODIUM LIQ 100 MG/10 ML UDC GT SCH (08:59)
[2016-10-31] MEDS: ACYCLOVIR 800 MG TABLET GT SCH ×2 (08:59→16:07)
[2016-10-31] MEDS: METOPROLOL TARTRATE 25 MG TABLET PO SCH ×2 (08:59→20:31)
[2016-10-31] MEDS: NEOMY SULF/BACITRAC ZN/POLY 15 GM TUBE TP SCH (08:59)
[2016-10-31] MEDS ORDERED: SECONDARY IV SET 1 EA INFUS.SET MC ONE (11:57)
[2016-10-31 12:00] VITALS: BP 112/77
[2016-10-31] MEDS: LEVOFLOXACIN 750 MG /D5W 150ML 750 MG in PREMIX 1 EA IV SCH (13:02)
--- NOTE | 2016-10-31 14:45 | NUR ---
INITIAL NOTE Resting in bed on R side. breathing even and unlabored on AC. trach patent, suctioned minimal secretions at this time. tele monitor reading ST 110-125. afebrile. skin warm and dry, fan on, reduce metabolic demand 2/2 hyperthermia. opens eyes, does not follow stimulus with eye, appears not oriented to name, non-verbal. contracted x4 extremities. GT patent infusing prescribed feedings, no significant residuals, stoma clean. R subclavian IV without complications, no s/s of infiltration or infection at this time. F/C draining yellow urine, tubing secured, non-pulling. call light in reach. Addendum: 10/31/16 at 1446 by LEILA PETERSON RN WRONG TIME- NOTED TO BE 0730
[2016-10-31 16:00] VITALS: BP 114/76
--- NOTE | 2016-10-31 19:11 | NUR ---
END OF SHIFT HANDED OFF REPORT TO NIGHT NURSE. PATIENT BASELINE STABLE CONDITION. NO RESPIRATORY DISTRESS, LOC UNCHANGED. REPOSITIONED Q2HR ONLY ON R SIDE AND SUPINE AND SUCTIONED PRN. CALL LIGHT IN REACH.
[2016-10-31 20:00] VITALS: BP 116/80
--- NOTE | 2016-10-31 20:00 | NUR ---
OPTICAL DESIGN ENGINEER NOTES RECEIVED PTS ON BED AWAKE AND RESPONSIVE, ON VENT AC SETTING WELL TOLERATED . ON TELE ST ON THE MONITOR , NO SOB NO DISTRESS NOTED , NO FACIAL GRIMACES NOTED, WITH RIGHT IJ TLC INTACT AND PATENT. HOB ELEVATED FOR ASPIRATION PRECAUTION SUCTION SECRETION DONE AND PRN,ALL DUE MEDS GIVEN ORDERED.V/S STABLE AFEBRILE , GT FEEDING WELL TOLERATED NO RESIDUAL NOTED , ALL NEEDS ATTENDED TOO CALL LIGHT WITHIN REACH, KEPT PTS CLEAN DRY AND COMFORTABLE.
--- NOTE | 2016-10-31 21:00 | NUR ---
telephone advice nurse notes pts noted with f/c out with ruptured ballon , diaper is wet , so condom cath applied , no available cath fr 6 at this time , will endorse to rn day to f/u
[2016-11-01] VITALS: BP 118/74
[2016-11-01] MEDS: FIBERSOURCE HN 1,000 ML BOTTLE GT PRN (01:58)
[2016-11-01 04:00] VITALS: BP 117/82
[2016-11-01] MEDS: TRAMADOL HCL 50 MG TABLET GT SCH ×3 (05:57→21:14)
[2016-11-01 06:30] LABS: BASOPHILS # (AUTO) 0.1 /CMM (0.0-0.2); BASOPHILS % (AUTO) 0.5 % (0.0-2.0); EOSINOPHILS # (AUTO) 0.9 /CMM (0.0-0.7); EOSINOPHILS % (AUTO) 6.6 % (0.0-6.0); HEMATOCRIT 30 % (39-51); HEMOGLOBIN 10.1 g/dL (13.5-17.5); LYMPHOCYTES # (AUTO) 2.9 /CMM (0.8-4.8); LYMPHOCYTES % (AUTO) 20.3 % (20.0-44.0); MEAN CORPUSCULAR HEMOGLOBIN 27 PG (26.0-33.0); MEAN CORPUSCULAR HGB CONC 34 g/dl (31.0-36.0); MEAN CORPUSCULAR VOLUME 82 fL (80-96); MONOCYTES # (AUTO) 1.5 /CMM (0.1-1.30); MONOCYTES % (AUTO) 10.3 % (2.0-12.0); NEUTROPHILS # (AUTO) 8.9 /CMM (1.8-8.9); NEUTROPHILS % (AUTO) 62.3 % (43.0-81.0); PLATELET COUNT (AUTO) 573 /CMM (150-450); RDW COEFFICIENT OF VARIATION 16.9 (11.5-15.0); WHITE BLOOD COUNT (AUTO) 14.2 K/uL (4.3-11.0)
[2016-11-01 06:58] LABS: ALBUMIN 2.3 g/dL (3.4-5.0); BILIRUBIN,TOTAL 0.2 mg/dL (0.2-1.0); CALCIUM, SERUM 9.6 mg/dL (8.5-10.1); CREATININE 0.6 mg/dL (0.6-1.3); TOTAL PROTEIN, SERUM 8.7 g/dL (6.4-8.2)
--- NOTE | 2016-11-01 07:18 | NUR ---
maintenance mechanic telephone notes pts on bed comfortable v/s stable afebrile, v/s stable afebrile . will endorse to rn day shift for continuity of care
[2016-11-01 08:00] VITALS: BP 119/83
--- NOTE | 2016-11-01 08:00 | NUR ---
MD made aware of L cranial fluid filled sac seemingly increasing according to patient's family members. MD responded saying it is a possible symptom of sepsis. NNO
[2016-11-01] MEDS: DOCUSATE SODIUM LIQ 100 MG/10 ML UDC GT SCH (08:29)
[2016-11-01] MEDS: ACYCLOVIR 800 MG TABLET GT SCH ×2 (08:29→16:37)
[2016-11-01] MEDS: PANTOPRAZOLE 40 MG/PACK PACK GT SCH (08:29)
[2016-11-01] MEDS: LACTOBACILLUS RHAMNOSUS GG 1 EACH CAP.SPRINK GT SCH ×2 (08:29→16:37)
[2016-11-01] MEDS: FERROUS SULFATE UDC 300 MG/5 ML UDC GT SCH ×2 (08:29→16:37)
[2016-11-01] MEDS: METOPROLOL TARTRATE 25 MG TABLET PO SCH ×2 (08:30→21:17)
[2016-11-01] MEDS: NEOMY SULF/BACITRAC ZN/POLY 15 GM TUBE TP SCH (08:30)
[2016-11-01] MEDS ORDERED: MICAFUNGIN SODIUM 150 MG in IV NS 0.9% 100 ML IV SCH (11:00)
--- NOTE | 2016-11-01 11:02 | NUR ---
paged Dr. Birto regarding platelet trends increasing and that patient is not on chemical VTE prophylaxis. Pending response.
[2016-11-01 12:00] VITALS: BP 109/69
[2016-11-01] MEDS: LEVOFLOXACIN 750 MG /D5W 150ML 750 MG in PREMIX 1 EA IV SCH (12:53)
[2016-11-01 16:00] VITALS: BP 103/72
--- NOTE | 2016-11-01 19:14 | NUR ---
END OF SHIFT HANDED OFF REPORT, NO ACUTE CHANGES, BASELINE STABLE.
[2016-11-01 20:00] VITALS: BP 126/85
--- NOTE | 2016-11-01 20:00 | NUR ---
director television news notes received pts on bed awake and responsive , on tele st on the monitor , no sob no distress no facial grimaces noted, v/s stable afebrile , remains on vent ac setting well tolerated ,hob elevated at all time for aspiration precaution .suction secretion done and prn. with right ij tlc intact and patent with good blood returns. gt feeding of [employer] at 55 cc/hr no residual noted , also with condom cath draining with yellowish urine output.all needs attended too call light within reach .all due meds given as ordered kept pts clean dry and comfortable.platelets 573 relayed to ale pnp with no order at this time,will continue to monitor pts.
[2016-11-02] VITALS (7 sets, daily range): BP systolic 107–133; BP diastolic 62–90
[2016-11-02] MEDS: FIBERSOURCE HN 1,000 ML BOTTLE GT PRN ×2 (00:19→21:55)
[2016-11-02] MEDS: TRAMADOL HCL 50 MG TABLET GT SCH ×3 (05:07→21:51)
--- NOTE | 2016-11-02 06:56 | NUR ---
KILN DOOR REPAIRER NOTES PTS ON BED RESPONSIVE V/S STABLE AFEBRILE , NO SIGNIFICANT CHANGE NOTED , ON TELE REAMINS ON ST , VENT SETTINGS WELL TOLERATED , WELL INDORSE TO RN DAY SHIFT FOR CONTINUITY OF CARE.
--- NOTE | 2016-11-02 07:30 | NUR ---
INITIAL NOTE Resting in bed on R side. breathing even and unlabored on AC. trach patent, suctioned moderate secretions at this time. tele monitor reading ST 110-125. afebrile. skin warm and dry, fan on, reduce metabolic demand 2/2 hyperthermia. opens eyes, does not follow stimulus with eye, appears not oriented to name, non-verbal. contracted x4 extremities. GT patent infusing prescribed feedings, no significant residuals, stoma clean. R subclavian IV without complications, no s/s of infiltration or infection at this time. call light in reach.
[2016-11-02 07:55] LABS: BASOPHILS % (AUTO) 0.2 % (0.0-2.0); EOSINOPHILS # (AUTO) 0.7 /CMM (0.0-0.7); EOSINOPHILS % (AUTO) 4.9 % (0.0-6.0); HEMATOCRIT 31 % (39-51); HEMOGLOBIN 10.4 g/dL (13.5-17.5); LYMPHOCYTES # (AUTO) 2.3 /CMM (0.8-4.8); MEAN CORPUSCULAR HEMOGLOBIN 27 PG (26.0-33.0); MEAN CORPUSCULAR HGB CONC 33 g/dl (31.0-36.0); MEAN CORPUSCULAR VOLUME 81 fL (80-96); MONOCYTES # (AUTO) 1.3 /CMM (0.1-1.30); MONOCYTES % (AUTO) 8.5 % (2.0-12.0); NEUTROPHILS # (AUTO) 10.9 /CMM (1.8-8.9); NEUTROPHILS % (AUTO) 71.4 % (43.0-81.0); PLATELET COUNT (AUTO) 564 /CMM (150-450); RDW COEFFICIENT OF VARIATION 17.1 (11.5-15.0); RED BLOOD CELL COUNT(AUTO) 3.86 MIL/uL (4.5-6.0); WHITE BLOOD COUNT (AUTO) 15.2 K/uL (4.3-11.0)
[2016-11-02] MEDS: FERROUS SULFATE UDC 300 MG/5 ML UDC GT SCH ×2 (08:11→16:35)
[2016-11-02] MEDS: LACTOBACILLUS RHAMNOSUS GG 1 EACH CAP.SPRINK GT SCH ×2 (08:11→16:35)
[2016-11-02] MEDS: ACYCLOVIR 800 MG TABLET GT SCH (08:11)
[2016-11-02] MEDS: PANTOPRAZOLE 40 MG/PACK PACK GT SCH (08:11)
[2016-11-02] MEDS: NEOMY SULF/BACITRAC ZN/POLY 15 GM TUBE TP SCH (08:11)
[2016-11-02] MEDS: DOCUSATE SODIUM LIQ 100 MG/10 ML UDC GT SCH (08:11)
[2016-11-02] MEDS: METOPROLOL TARTRATE 25 MG TABLET PO SCH ×2 (08:12→21:51)
[2016-11-02 08:15] LABS: CALCIUM, SERUM 9.4 mg/dL (8.5-10.1); CREATININE 0.7 mg/dL (0.6-1.3); MAGNESIUM 1.9 mg/dL (1.8-2.4); POTASSIUM 3.9 mmol/L (3.5-5.1)
--- NOTE | 2016-11-02 09:28 | NUR ---
Patient received trached on mechanical vent. Breath sounds equal bilateral. Ambu bag at the bed side. Vent plugged into red outlet and alarms set and functioning.
[2016-11-02] MEDS: MICAFUNGIN SODIUM 100 MG in IV NS 0.9% 100 ML IV SCH (10:21)
[2016-11-02] MEDS ORDERED: IV NS 0.9% 250 ML IV ONE (10:22)
[2016-11-02] MEDS: LEVOFLOXACIN 750 MG /D5W 150ML 750 MG in PREMIX 1 EA IV SCH (12:33)
--- NOTE | 2016-11-02 13:22 | NUR ---
non admin note 250 NS hung as tko for multiple atbx secondary iv, not able to scan
--- NOTE | 2016-11-02 19:30 | NUR ---
RN OPENING NOTES: RECEIVED PATIENT IN BED WITH SPONTANEOUS EYE OPENING. TRACH TO [facility] VENT SETTINGS ORDERED; TOLERATED WELL, NOT IN APAPRENT DISTRESS. SINUS TACH ON MONITOR HR AT 114 BPM. RIJ TRIPLE LUMEN CATH INTACT, FLUSHING WELL WITH GOOD BLOOD RETURN. GT INTACT, FEEDING ONGOING ORDERED. SAFETY MEASURES ENSURED. ASPIRATION PREC OBSERVED. CONTINUOUSLY MONITORED ACCORDINGLY.
[2016-11-03] VITALS (9 sets, daily range): BP systolic 107–126; BP diastolic 75–84
[2016-11-03] MEDS: TRAMADOL HCL 50 MG TABLET GT SCH ×3 (05:00→20:54)
[2016-11-03] MEDS: IV NS 0.9% 250 ML IV PRN (06:46)
[2016-11-03 06:50] LABS: BASOPHILS % (AUTO) 0.1 % (0.0-2.0); EOSINOPHILS # (AUTO) 0.6 /CMM (0.0-0.7); EOSINOPHILS % (AUTO) 4.8 % (0.0-6.0); HEMATOCRIT 29 % (39-51); HEMOGLOBIN 9.7 g/dL (13.5-17.5); LYMPHOCYTES # (AUTO) 1.8 /CMM (0.8-4.8); LYMPHOCYTES % (AUTO) 13.8 % (20.0-44.0); MEAN CORPUSCULAR HEMOGLOBIN 27 PG (26.0-33.0); MEAN CORPUSCULAR HGB CONC 33 g/dl (31.0-36.0); MEAN CORPUSCULAR VOLUME 81 fL (80-96); MONOCYTES # (AUTO) 1.3 /CMM (0.1-1.30); MONOCYTES % (AUTO) 10.6 % (2.0-12.0); NEUTROPHILS % (AUTO) 70.7 % (43.0-81.0); PLATELET COUNT (AUTO) 522 /CMM (150-450); RDW COEFFICIENT OF VARIATION 17.9 (11.5-15.0); RED BLOOD CELL COUNT(AUTO) 3.57 MIL/uL (4.5-6.0); WHITE BLOOD COUNT (AUTO) 12.7 K/uL (4.3-11.0)
[2016-11-03 07:15] LABS: CALCIUM, SERUM 9.1 mg/dL (8.5-10.1); CREATININE 0.6 mg/dL (0.6-1.3); POTASSIUM 3.9 mmol/L (3.5-5.1)
--- NOTE | 2016-11-03 07:36 | NUR ---
RN NOTES: PATIENT REMAINED IN BED NOT IN APPARENT DISTRESS. WEEKLY SKIN ASSESSMENT DONE WITH PHOTODOCUMENTATION FILED. NO FEVERS NOTED. AM LABS DONE.PENDING RESULTS. NO ACUTE CHANGES WITHIN SHIFT. SAFETY MEASURES ENSURED. TO ENDORSE TO AM SHIFT RN.
--- NOTE | 2016-11-03 07:41 | NUR ---
RN NOTES: PT RECEIVED IN STABLE CONDITION, OPEN EYES, OBTUNDED. ON VENT- TRAC, SETTINGS TOLERATING WELL. NO S/S OF RESPIRATORY DISTRESS NOTED. ON TELE MONITOR SINUS TACHY. APPEARS COMFORTABLE AT THIS TIME. HOB ELEVATED. ASPIRATION PRECAUTIONS OBSERVED. TUBE FEEDING RUNNING ORDERED, NO RESIDUAL NOTED. IV SITE INTACT, FLUSHED WITHOUT DIFFICULTY. SAFETY MEASURES OBSERVED. CONTINUE TO MONITOR CLOSELY.
[2016-11-03] MEDS: DOCUSATE SODIUM LIQ 100 MG/10 ML UDC GT SCH (08:44)
[2016-11-03] MEDS: LACTOBACILLUS RHAMNOSUS GG 1 EACH CAP.SPRINK GT SCH ×2 (08:44→16:32)
[2016-11-03] MEDS: PANTOPRAZOLE 40 MG/PACK PACK GT SCH (08:44)
[2016-11-03] MEDS: FERROUS SULFATE UDC 300 MG/5 ML UDC GT SCH ×2 (08:44→16:32)
[2016-11-03] MEDS: NEOMY SULF/BACITRAC ZN/POLY 15 GM TUBE TP SCH (08:45)
[2016-11-03] MEDS: METOPROLOL TARTRATE 25 MG TABLET PO SCH ×2 (08:45→20:50)
[2016-11-03] MEDS: MICAFUNGIN SODIUM 100 MG in IV NS 0.9% 100 ML IV SCH (10:12)
[2016-11-03] MEDS: LEVOFLOXACIN 750 MG /D5W 150ML 750 MG in PREMIX 1 EA IV SCH (12:22)
--- NOTE | 2016-11-03 12:30 | NUR ---
RN NOTES: ECHO RESULTS CAME BACK WITHIN DEFINE LIMITS, ORDERED WILL DISCHARGE TO SNF WHEN CLEARED FROM ID DR. WAY. WILL FOLLOW UP
--- NOTE | 2016-11-03 12:50 | NUR ---
RN NOTES; LEFT MESSAGE AT DR. WAY OFFICE TO FOLLOW UP.
--- NOTE | 2016-11-03 13:40 | NUR ---
RN NOTES: REASSESSMENT DONE POST TRAMADOL ADMINISTRATION, APPEARS COMFORTABLE. CONTINUE TO MONITOR.
--- NOTE | 2016-11-03 18:50 | NUR ---
RN NOTES: SPOKE WITH DR. CONTE, OK TO DISCHARGE WITH ANTIBIOTICS ID RECOMMAND, WILL RELAY INFORMATION TO DR. WAY.
--- NOTE | 2016-11-03 19:00 | NUR ---
RN NOTES: N.P OF DR. WAY CALL BACK WILL BE HERE TO SEE PATIENT & GIVE ORDERS REGARDING DISCHARGE ATB. WILL ENDORSE TO NEXT SHIFT TO FOLLOW UP.
--- NOTE | 2016-11-03 19:30 | NUR ---
RN OPENING NOTES: RECEIVED PATIENT IN BED WITH SPONTANEOUS EYE OPENING. TRACH TO [facility] VENT SETTINGS ORDERED; TOLERATED WELL, NOT IN APPARENT DISTRESS. SINUS TACH ON MONITOR HR AT 123 BPM. RIJ TRIPLE LUMEN CATH INTACT REMOVED BY AM VISITOR SERVICES ASSISTANT SOON. IV ACCESS NOW ON RFA G22 KEPT SL. GT INTACT, FEEDING ONGOING ORDERED. SAFETY MEASURES ENSURED. ASPIRATION PREC OBSERVED. CONTINUOUSLY MONITORED ACCORDINGLY. TO DISCHARGE TONIGHT AT 11PM. AWAITING FOR DR WAY'S TOWEL INSPECTOR TO COME AND ASSESS PATIENT.
--- NOTE | 2016-11-03 23:16 | NUR ---
RN NOTES: [address]'S CONDITIONER TUMBLER OPERATOR IN, ASSESSED PATIENT. SIGNED PRESCRIPTION IN CHART FOR ANTIBIOTICS TO BE CONTINUED IN SNF. SKIN CARE RENDERED. PM MEDS GIVEN ORDERED. EMT'S IN, REPORT GIVEN TO EMT AND RT. PT HR STABLE AT THIS TIME. SAFELY TRASNFERRED TO RONALD. PATIENT LEFT NOT IN APPARENT DISTRESS AT 8429
== END 2016-11-03 22:55 | DRG 720 ==
LOC: ER 17:05 → ICU 20:05 → TELE-TD 10-21 12:32 → TELE1 10-27 11:38
PROVIDERS: ADMIT Internal Medicine; ATTEND Internal Medicine
DX: A41.9 Sepsis, unspecified organism (principal); J96.21 Acute and chronic respiratory failure with hypoxia; N17.0 Acute kidney failure with tubular necrosis; G92 Toxic encephalopathy; R65.21 Severe sepsis with septic shock; E43 Unspecified severe protein-calorie malnutrition; J15.1 Pneumonia due to Pseudomonas; B49 Unspecified mycosis; Z99.11 Dependence on respirator [ventilator] status; G91.9 Hydrocephalus, unspecified; Z93.0 Tracheostomy status; Z98.2 Presence of cerebrospinal fluid drainage device; R13.10 Dysphagia, unspecified; D63.8 Anemia in other chronic diseases classified elsewhere; E83.42 Hypomagnesemia; E87.1 Hypo-osmolality and hyponatremia; E86.1 Hypovolemia; Z87.820 Personal history of traumatic brain injury; N18.9 Chronic kidney disease, unspecified; I12.9 Hypertensive chronic kidney disease with stage 1 through stage 4 chronic kidney disease, or unspecified chronic kidney disease; E87.6 Hypokalemia; K27.9 Peptic ulcer, site unspecified, unspecified as acute or chronic, without hemorrhage or perforation; E87.0 Hyperosmolality and hypernatremia; B00.1 Herpesviral vesicular dermatitis
CPT/HCPCS: 31720; 36415; 36600; 70360-TC; 71010-TC; 76705-TC; 80048-TC; 80053-TC; 80076-TC; 80202-TC; 81000-TC; 82272-TC; 82962-TC; 83605-TC; 83735-TC; 84100-TC; 84484-TC; 85025-TC; 85730-TC; 87040-TC; 87070-TC; 87081-TC; 87086-TC; 87186-TC; 87400; 93307-TC; 94002-TC; 94003-TC; 94640-TC; 94760-TC; 94762-TC; 99082-TC; A4216; A4349; A4606; A4623; A6402; A6403; A7526; J0153; J1650; J1956; J2060; J2185; J2248; J2270; J2405; J2543; J3370; J3475; J3480; J3490; J7030; J7040; J7050; J7060; Z7610

== ENCOUNTER 2016-11-04 11:05 | Inpatient (IN) | payer MEDICAID ==
[2016-11-04] VITALS (10 sets, daily range): BP systolic 105–123; BP diastolic 3–82
[~2016-11-04] VITALS: Ht 167.6 cm; Wt 39.9 kg
[~2016-11-04 11:05] MED LIST: ACET650S26 GT; BACL10TA GT; BISA10SU8 RC; DOCU-170 GT; ENOX30DI SQ; ESOM40CA GT; FERR220S3 GT; INSU100V3 SQ; IPRA3AMP IH; LACT-96 GT; LISI-603 GT; MAGN400O6 GT; METO50TA3 GT; NA P133E RC; TRAM50TA2 GT
[2016-11-04 11:39] LABS: CALCIUM, SERUM 9.5 mg/dL (8.5-10.1); CARBON DIOXIDE 27 mmol/L (21-32); CHLORIDE 102 mmol/L (98-107); CREATININE 0.8 mg/dL (0.6-1.3); GLUCOSE 112 mg/dL (74-106); POTASSIUM 3.9 mmol/L (3.5-5.1); SODIUM SERUM 137 mmol/L (136-145); UREA NITROGEN, BLOOD 12 mg/dL (7-18)
[2016-11-04 11:42] LABS: INR 1.09 (0.87-1.13); PROTHROMBIN TIME 11.3 SECS (9.5-12.7)
[2016-11-04 11:44] LABS: ALANINE AMINOTRANSFERASE 26 U/L (12-78); ALBUMIN 2.3 g/dL (3.4-5.0); ALKALINE PHOSPHATASE 120 U/L (46-116); ASPARTATE AMINOTRANSFERASE 19 U/L (15-37); BILIRUBIN,DIRECT 0.1 mg/dL (0.0-0.2); BILIRUBIN,TOTAL 0.3 mg/dL (0.2-1.0); TOTAL PROTEIN, SERUM 8.2 g/dL (6.4-8.2)
[2016-11-04 11:46] LABS: TROPONIN I < 0.017 ng/mL (0.00-0.056)
[2016-11-04 11:49] LABS: APPEARANCE,URINE Clear (CLEAR); BILIRUBIN,URINE Negative (NEGATIVE); BLOOD, URINE Negative Ery/uL (NEGATIVE); COLOR,URINE Yellow (YELLOW); KETONES,URINE Negative (NEGATIVE); LEUKOCYTE ESTERASE ,URINE Negative (NEGATIVE); NITRITE, URINE Negative (NEGATIVE); PROTEIN,URINE Negative (NEGATIVE); UGLUCOSE Negative (NEGATIVE); UROBILINOGEN,URINE 0.2 EU/dL (0.2)
[2016-11-04 11:50] LABS: BASOPHILS % (AUTO) 0.3 % (0.0-2.0); EOSINOPHILS # (AUTO) 0.7 /CMM (0.0-0.7); EOSINOPHILS % (AUTO) 5.5 % (0.0-6.0); HEMATOCRIT 30 % (39-51); HEMOGLOBIN 10.1 g/dL (13.5-17.5); LYMPHOCYTES # (AUTO) 1.7 /CMM (0.8-4.8); LYMPHOCYTES % (AUTO) 14.6 % (20.0-44.0); MEAN CORPUSCULAR HEMOGLOBIN 27 PG (26.0-33.0); MEAN CORPUSCULAR HGB CONC 33 g/dl (31.0-36.0); MEAN CORPUSCULAR VOLUME 81 fL (80-96); MONOCYTES # (AUTO) 1.5 /CMM (0.1-1.30); MONOCYTES % (AUTO) 12.9 % (2.0-12.0); NEUTROPHILS # (AUTO) 7.9 /CMM (1.8-8.9); NEUTROPHILS % (AUTO) 66.7 % (43.0-81.0); PLATELET COUNT (AUTO) 583 /CMM (150-450); RDW COEFFICIENT OF VARIATION 17.8 (11.5-15.0); RED BLOOD CELL COUNT(AUTO) 3.72 MIL/uL (4.5-6.0); WHITE BLOOD COUNT (AUTO) 11.9 K/uL (4.3-11.0)
[2016-11-04 17:15] LABS: ABG BASE EXCESS 1.1 mmol/L; ABG OXYGEN SATURATION 98.1 % (92.0-98.5); ABG PCO2 31.1 mmHg (35.0-45.0); ABG PH 7.502 (7.350-7.450); ABG PO2 135.3 mmHg (75.0-100.0); AaDO2 114.1 mmHg; COHb 0.3 % (0.5-1.5); MetHb 0.9 % (0.0-1.5); O2Hb 96.9 % (94.0-97.0); PEEP,BG 0 cm H2O; SITE, ABG Left Radial; VT, ABG 500 mL
[2016-11-05] VITALS (9 sets, daily range): BP systolic 100–123; BP diastolic 3–82
[2016-11-05 07:32] LABS: BASOPHILS % (AUTO) 0.3 % (0.0-2.0); EOSINOPHILS # (AUTO) 0.3 /CMM (0.0-0.7); EOSINOPHILS % (AUTO) 3.5 % (0.0-6.0); HEMATOCRIT 33 % (39-51); HEMOGLOBIN 10.9 g/dL (13.5-17.5); LYMPHOCYTES # (AUTO) 1.4 /CMM (0.8-4.8); LYMPHOCYTES % (AUTO) 14.8 % (20.0-44.0); MEAN CORPUSCULAR HEMOGLOBIN 27 PG (26.0-33.0); MEAN CORPUSCULAR HGB CONC 33 g/dl (31.0-36.0); MEAN CORPUSCULAR VOLUME 82 fL (80-96); MONOCYTES # (AUTO) 0.8 /CMM (0.1-1.30); MONOCYTES % (AUTO) 8.7 % (2.0-12.0); NEUTROPHILS # (AUTO) 7.1 /CMM (1.8-8.9); NEUTROPHILS % (AUTO) 72.7 % (43.0-81.0); PLATELET COUNT (AUTO) 670 /CMM (150-450); RDW COEFFICIENT OF VARIATION 17.8 (11.5-15.0); RED BLOOD CELL COUNT(AUTO) 4.02 MIL/uL (4.5-6.0); WHITE BLOOD COUNT (AUTO) 9.8 K/uL (4.3-11.0)
[2016-11-05 07:39] LABS: CALCIUM, SERUM 9.5 mg/dL (8.5-10.1); CREATININE 0.8 mg/dL (0.6-1.3); PHOSPHORUS 4.2 mg/dL (2.5-4.9); POTASSIUM 3.5 mmol/L (3.5-5.1)
[2016-11-06] VITALS: BP 93/65
[2016-11-06 04:00] VITALS: BP 106/66
[2016-11-06 06:45] LABS: BASOPHILS % (AUTO) 0.2 % (0.0-2.0); EOSINOPHILS # (AUTO) 0.4 /CMM (0.0-0.7); EOSINOPHILS % (AUTO) 3.1 % (0.0-6.0); HEMATOCRIT 29 % (39-51); HEMOGLOBIN 9.7 g/dL (13.5-17.5); LYMPHOCYTES # (AUTO) 1.8 /CMM (0.8-4.8); MEAN CORPUSCULAR HEMOGLOBIN 27 PG (26.0-33.0); MEAN CORPUSCULAR HGB CONC 33 g/dl (31.0-36.0); MEAN CORPUSCULAR VOLUME 82 fL (80-96); MONOCYTES # (AUTO) 1.1 /CMM (0.1-1.30); MONOCYTES % (AUTO) 9.4 % (2.0-12.0); NEUTROPHILS # (AUTO) 8.8 /CMM (1.8-8.9); NEUTROPHILS % (AUTO) 72.3 % (43.0-81.0); PLATELET COUNT (AUTO) 598 /CMM (150-450); RDW COEFFICIENT OF VARIATION 17.7 (11.5-15.0); RED BLOOD CELL COUNT(AUTO) 3.55 MIL/uL (4.5-6.0); WHITE BLOOD COUNT (AUTO) 12.1 K/uL (4.3-11.0)
[2016-11-06 07:07] LABS: CALCIUM, SERUM 9.1 mg/dL (8.5-10.1); CREATININE 0.7 mg/dL (0.6-1.3); PHOSPHORUS 4.1 mg/dL (2.5-4.9); POTASSIUM 4.2 mmol/L (3.5-5.1)
[2016-11-06 08:00] VITALS: BP 108/66
[2016-11-06 12:00] VITALS: BP 96/59
[2016-11-06 16:00] VITALS: BP 105/61
[2016-11-06 20:00] VITALS: BP 117/78
[2016-11-07] VITALS: BP 116/79
[2016-11-07 04:00] VITALS: BP 109/68
[2016-11-07 07:18] LABS: BASOPHILS % (AUTO) 0.2 % (0.0-2.0); EOSINOPHILS # (AUTO) 0.5 /CMM (0.0-0.7); EOSINOPHILS % (AUTO) 4.7 % (0.0-6.0); HEMATOCRIT 28 % (39-51); HEMOGLOBIN 9.2 g/dL (13.5-17.5); LYMPHOCYTES # (AUTO) 1.7 /CMM (0.8-4.8); LYMPHOCYTES % (AUTO) 15.1 % (20.0-44.0); MEAN CORPUSCULAR HEMOGLOBIN 28 PG (26.0-33.0); MEAN CORPUSCULAR HGB CONC 33 g/dl (31.0-36.0); MEAN CORPUSCULAR VOLUME 83 fL (80-96); MONOCYTES # (AUTO) 0.9 /CMM (0.1-1.30); MONOCYTES % (AUTO) 7.8 % (2.0-12.0); NEUTROPHILS # (AUTO) 8.2 /CMM (1.8-8.9); NEUTROPHILS % (AUTO) 72.2 % (43.0-81.0); PLATELET COUNT (AUTO) 515 /CMM (150-450); RDW COEFFICIENT OF VARIATION 17.6 (11.5-15.0); RED BLOOD CELL COUNT(AUTO) 3.35 MIL/uL (4.5-6.0); WHITE BLOOD COUNT (AUTO) 11.4 K/uL (4.3-11.0)
[2016-11-07 07:47] LABS: CALCIUM, SERUM 8.8 mg/dL (8.5-10.1); CREATININE 0.8 mg/dL (0.6-1.3); MAGNESIUM 1.9 mg/dL (1.8-2.4); PHOSPHORUS 3.9 mg/dL (2.5-4.9); POTASSIUM 3.6 mmol/L (3.5-5.1)
[2016-11-07 08:00] VITALS: BP 119/74
[2016-11-07 12:00] VITALS: BP 107/67
[2016-11-07 16:00] VITALS: BP 99/65
[2016-11-07 20:00] VITALS: BP 114/75
[2016-11-08] VITALS (7 sets, daily range): BP systolic 105–116; BP diastolic 62–79
[2016-11-08 05:48] LABS: BASOPHILS % (AUTO) 0.2 % (0.0-2.0); EOSINOPHILS # (AUTO) 0.7 /CMM (0.0-0.7); EOSINOPHILS % (AUTO) 5.7 % (0.0-6.0); HEMATOCRIT 30 % (39-51); HEMOGLOBIN 10.1 g/dL (13.5-17.5); LYMPHOCYTES # (AUTO) 2.1 /CMM (0.8-4.8); LYMPHOCYTES % (AUTO) 17.7 % (20.0-44.0); MEAN CORPUSCULAR HEMOGLOBIN 28 PG (26.0-33.0); MEAN CORPUSCULAR HGB CONC 33 g/dl (31.0-36.0); MEAN CORPUSCULAR VOLUME 83 fL (80-96); MONOCYTES # (AUTO) 0.9 /CMM (0.1-1.30); MONOCYTES % (AUTO) 7.4 % (2.0-12.0); NEUTROPHILS # (AUTO) 8.2 /CMM (1.8-8.9); PLATELET COUNT (AUTO) 445 /CMM (150-450); RDW COEFFICIENT OF VARIATION 17.4 (11.5-15.0); RED BLOOD CELL COUNT(AUTO) 3.65 MIL/uL (4.5-6.0); WHITE BLOOD COUNT (AUTO) 11.9 K/uL (4.3-11.0)
[2016-11-08 06:01] LABS: CREATININE 0.6 mg/dL (0.6-1.3); POTASSIUM 3.8 mmol/L (3.5-5.1)
[2016-11-09] VITALS (8 sets, daily range): BP systolic 107–130; BP diastolic 73–89
[2016-11-09 06:42] LABS: BASOPHILS # (AUTO) 0.1 /CMM (0.0-0.2); BASOPHILS % (AUTO) 0.6 % (0.0-2.0); EOSINOPHILS # (AUTO) 0.7 /CMM (0.0-0.7); EOSINOPHILS % (AUTO) 7.7 % (0.0-6.0); HEMATOCRIT 28 % (39-51); HEMOGLOBIN 9.4 g/dL (13.5-17.5); LYMPHOCYTES # (AUTO) 1.7 /CMM (0.8-4.8); MEAN CORPUSCULAR HEMOGLOBIN 27 PG (26.0-33.0); MEAN CORPUSCULAR HGB CONC 33 g/dl (31.0-36.0); MEAN CORPUSCULAR VOLUME 82 fL (80-96); MONOCYTES # (AUTO) 0.7 /CMM (0.1-1.30); MONOCYTES % (AUTO) 7.8 % (2.0-12.0); NEUTROPHILS # (AUTO) 5.7 /CMM (1.8-8.9); NEUTROPHILS % (AUTO) 64.9 % (43.0-81.0); PLATELET COUNT (AUTO) 480 /CMM (150-450); RDW COEFFICIENT OF VARIATION 16.8 (11.5-15.0); RED BLOOD CELL COUNT(AUTO) 3.42 MIL/uL (4.5-6.0); WHITE BLOOD COUNT (AUTO) 8.7 K/uL (4.3-11.0)
[2016-11-09 06:57] LABS: CALCIUM, SERUM 8.7 mg/dL (8.5-10.1); CREATININE 0.6 mg/dL (0.6-1.3); PHOSPHORUS 4.1 mg/dL (2.5-4.9)
[2016-11-10] VITALS: BP 109/75
[2016-11-10 04:00] VITALS: BP 115/78
[2016-11-10 06:41] LABS: BASOPHILS % (AUTO) 0.2 % (0.0-2.0); EOSINOPHILS # (AUTO) 0.4 /CMM (0.0-0.7); EOSINOPHILS % (AUTO) 3.2 % (0.0-6.0); HEMATOCRIT 32 % (39-51); HEMOGLOBIN 10.6 g/dL (13.5-17.5); LYMPHOCYTES # (AUTO) 1.4 /CMM (0.8-4.8); LYMPHOCYTES % (AUTO) 11.4 % (20.0-44.0); MEAN CORPUSCULAR HEMOGLOBIN 27 PG (26.0-33.0); MEAN CORPUSCULAR HGB CONC 33 g/dl (31.0-36.0); MEAN CORPUSCULAR VOLUME 83 fL (80-96); MONOCYTES # (AUTO) 0.7 /CMM (0.1-1.30); MONOCYTES % (AUTO) 5.9 % (2.0-12.0); NEUTROPHILS # (AUTO) 9.7 /CMM (1.8-8.9); NEUTROPHILS % (AUTO) 79.3 % (43.0-81.0); PLATELET COUNT (AUTO) 506 /CMM (150-450); RED BLOOD CELL COUNT(AUTO) 3.88 MIL/uL (4.5-6.0); WHITE BLOOD COUNT (AUTO) 12.3 K/uL (4.3-11.0)
[2016-11-10 07:01] LABS: CREATININE 0.6 mg/dL (0.6-1.3); MAGNESIUM 2.1 mg/dL (1.8-2.4); POTASSIUM 4.1 mmol/L (3.5-5.1)
[2016-11-10 08:00] VITALS: BP 136/92
[2016-11-10 12:00] VITALS: BP 115/82
[2016-11-10 16:00] VITALS: BP_SYST 115; BP_SYST 128; BP_DIAS 82; BP_DIAS 87
[2016-11-10 20:00] VITALS: BP 112/72
[2016-11-11] VITALS: BP 113/70
[2016-11-11 04:00] VITALS: BP 130/85
[2016-11-11 06:13] LABS: BASOPHILS % (AUTO) 0.2 % (0.0-2.0); EOSINOPHILS # (AUTO) 0.5 /CMM (0.0-0.7); EOSINOPHILS % (AUTO) 3.9 % (0.0-6.0); HEMATOCRIT 30 % (39-51); HEMOGLOBIN 9.9 g/dL (13.5-17.5); LYMPHOCYTES # (AUTO) 1.2 /CMM (0.8-4.8); LYMPHOCYTES % (AUTO) 9.2 % (20.0-44.0); MEAN CORPUSCULAR HEMOGLOBIN 27 PG (26.0-33.0); MEAN CORPUSCULAR HGB CONC 33 g/dl (31.0-36.0); MEAN CORPUSCULAR VOLUME 82 fL (80-96); MONOCYTES # (AUTO) 0.9 /CMM (0.1-1.30); MONOCYTES % (AUTO) 7.1 % (2.0-12.0); NEUTROPHILS # (AUTO) 10.2 /CMM (1.8-8.9); NEUTROPHILS % (AUTO) 79.6 % (43.0-81.0); PLATELET COUNT (AUTO) 449 /CMM (150-450); RDW COEFFICIENT OF VARIATION 16.6 (11.5-15.0); RED BLOOD CELL COUNT(AUTO) 3.67 MIL/uL (4.5-6.0); WHITE BLOOD COUNT (AUTO) 12.8 K/uL (4.3-11.0)
[2016-11-11 06:32] LABS: CREATININE 0.6 mg/dL (0.6-1.3); POTASSIUM 4.1 mmol/L (3.5-5.1)
[2016-11-11 08:00] VITALS: BP 137/93
[2016-11-11 12:00] VITALS: BP 110/73
[2016-11-11 16:00] VITALS: BP 96/67
[2016-11-11 20:00] VITALS: BP 132/94
[2016-11-12] VITALS: BP 131/72
[2016-11-12 04:00] VITALS: BP 91/50
[2016-11-12 06:32] LABS: HEMATOCRIT 30 % (39-51); HEMOGLOBIN 10.1 g/dL (13.5-17.5); LYMPHOCYTES # (AUTO) 0.6 /CMM (0.8-4.8); LYMPHOCYTES % (AUTO) 3.9 % (20.0-44.0); MEAN CORPUSCULAR HEMOGLOBIN 28 PG (26.0-33.0); MEAN CORPUSCULAR HGB CONC 34 g/dl (31.0-36.0); MEAN CORPUSCULAR VOLUME 82 fL (80-96); MONOCYTES # (AUTO) 0.2 /CMM (0.1-1.30); MONOCYTES % (AUTO) 1.3 % (2.0-12.0); NEUTROPHILS # (AUTO) 14.7 /CMM (1.8-8.9); NEUTROPHILS % (AUTO) 94.8 % (43.0-81.0); PLATELET COUNT (AUTO) 288 /CMM (150-450); RDW COEFFICIENT OF VARIATION 16.6 (11.5-15.0); RED BLOOD CELL COUNT(AUTO) 3.65 MIL/uL (4.5-6.0); WHITE BLOOD COUNT (AUTO) 15.5 K/uL (4.3-11.0)
[2016-11-12 06:51] LABS: BILIRUBIN,TOTAL 0.6 mg/dL (0.2-1.0); CALCIUM, SERUM 8.5 mg/dL (8.5-10.1); MAGNESIUM 1.6 mg/dL (1.8-2.4); PHOSPHORUS 3.1 mg/dL (2.5-4.9); POTASSIUM 2.9 mmol/L (3.5-5.1); TOTAL PROTEIN, SERUM 7.3 g/dL (6.4-8.2)
[2016-11-12 07:43] LABS: BAND % (MANUAL) 7 % (0.0-5.0); LYMPHOCYTES % (MANUAL) 4 % (16-48); MONOCYTES % (MANUAL) 2 % (0-11.0); NEUTROPHILS % (MANUAL) 87 (42-76)
[2016-11-12 08:00] VITALS: BP 130/75
[2016-11-12 09:57] LABS: BILIRUBIN,DIRECT 0.1 mg/dL (0.0-0.2)
[2016-11-12 12:00] VITALS: BP 107/53
[2016-11-12 15:40] LABS: APPEARANCE,URINE CLEAR (CLEAR); BILIRUBIN,URINE NEGATIVE (NEGATIVE); BLOOD, URINE 1+ Ery/uL (NEGATIVE); KETONES,URINE NEGATIVE (NEGATIVE); LEUKOCYTE ESTERASE ,URINE NEGATIVE (NEGATIVE); NITRITE, URINE NEGATIVE (NEGATIVE); PROTEIN,URINE TRACE mg/dl (NEGATIVE); UGLUCOSE NEGATIVE (NEGATIVE); UROBILINOGEN,URINE 0.2 EU/dL (0.2)
[2016-11-12 15:50] LABS: COLOR,URINE DARK YELLOW (YELLOW)
[2016-11-12 15:52] LABS: BACTERIA,URINE Few /HPF (None Seen); SQUAMOUS EPITHELIAL CELL,UR Few /HPF (None Seen); URINE AMORPHOUS URATE Moderate /HPF (None Seen); WBC,URINE 0-2 /HPF (0-3)
[2016-11-12 16:00] VITALS: BP_SYST 112; BP_SYST 124; BP_DIAS 77; BP_DIAS 90
[2016-11-12 20:00] VITALS: BP 100/65
[2016-11-13] VITALS: BP_SYST 102; BP_SYST 90; BP_DIAS 54; BP_DIAS 56
[2016-11-13 04:00] VITALS: BP 97/65
[2016-11-13 06:33] LABS: EOSINOPHILS % (AUTO) 0.1 % (0.0-6.0); HEMATOCRIT 25 % (39-51); HEMOGLOBIN 8.2 g/dL (13.5-17.5); LYMPHOCYTES # (AUTO) 1.2 /CMM (0.8-4.8); LYMPHOCYTES % (AUTO) 6.1 % (20.0-44.0); MEAN CORPUSCULAR HEMOGLOBIN 28 PG (26.0-33.0); MEAN CORPUSCULAR HGB CONC 34 g/dl (31.0-36.0); MEAN CORPUSCULAR VOLUME 83 fL (80-96); MONOCYTES # (AUTO) 1.2 /CMM (0.1-1.30); MONOCYTES % (AUTO) 6.2 % (2.0-12.0); NEUTROPHILS # (AUTO) 16.7 /CMM (1.8-8.9); NEUTROPHILS % (AUTO) 87.6 % (43.0-81.0); PLATELET COUNT (AUTO) 207 /CMM (150-450); RDW COEFFICIENT OF VARIATION 17.4 (11.5-15.0); RED BLOOD CELL COUNT(AUTO) 2.97 MIL/uL (4.5-6.0); WHITE BLOOD COUNT (AUTO) 19.1 K/uL (4.3-11.0)
[2016-11-13 06:45] LABS: CALCIUM, SERUM 8.5 mg/dL (8.5-10.1); CREATININE 0.6 mg/dL (0.6-1.3); POTASSIUM 3.6 mmol/L (3.5-5.1)
[2016-11-13 07:50] LABS: BAND % (MANUAL) 5 % (0.0-5.0); LYMPHOCYTES % (MANUAL) 3 % (16-48); NEUTROPHILS % (MANUAL) 92 (42-76)
[2016-11-13 08:00] VITALS: BP 102/48
[2016-11-13 12:00] VITALS: BP 99/65
[2016-11-13 16:00] VITALS: BP 104/68
[2016-11-13 20:00] VITALS: BP 113/72
[2016-11-14] VITALS: BP 127/68
[2016-11-14 04:00] VITALS: BP 136/98
[2016-11-14 06:54] LABS: CREATININE 0.4 mg/dL (0.6-1.3)
[2016-11-14 08:00] VITALS: BP_SYST 125; BP_SYST 144; BP_DIAS 55; BP_DIAS 88
[2016-11-14 08:35] LABS: POTASSIUM 2.5 mmol/L (3.5-5.1)
[2016-11-14 12:00] VITALS: BP 113/75
[2016-11-14 16:00] VITALS: BP 114/74
[2016-11-14 20:00] VITALS: BP 140/90
[2016-11-14 20:24] LABS: CALCIUM, SERUM 8.1 mg/dL (8.5-10.1); CREATININE 0.4 mg/dL (0.6-1.3); POTASSIUM 3.6 mmol/L (3.5-5.1)
[2016-11-15] VITALS: BP 109/77
[2016-11-15 04:00] VITALS: BP 114/80
[2016-11-15 06:48] LABS: BASOPHILS % (AUTO) 0.3 % (0.0-2.0); EOSINOPHILS # (AUTO) 0.2 /CMM (0.0-0.7); EOSINOPHILS % (AUTO) 2.6 % (0.0-6.0); HEMATOCRIT 25 % (39-51); HEMOGLOBIN 8.2 g/dL (13.5-17.5); LYMPHOCYTES # (AUTO) 1.6 /CMM (0.8-4.8); LYMPHOCYTES % (AUTO) 27.6 % (20.0-44.0); MEAN CORPUSCULAR HEMOGLOBIN 28 PG (26.0-33.0); MEAN CORPUSCULAR HGB CONC 34 g/dl (31.0-36.0); MEAN CORPUSCULAR VOLUME 82 fL (80-96); MONOCYTES # (AUTO) 0.6 /CMM (0.1-1.30); NEUTROPHILS # (AUTO) 3.4 /CMM (1.8-8.9); NEUTROPHILS % (AUTO) 58.5 % (43.0-81.0); PLATELET COUNT (AUTO) 193 /CMM (150-450); RDW COEFFICIENT OF VARIATION 17.3 (11.5-15.0); RED BLOOD CELL COUNT(AUTO) 2.98 MIL/uL (4.5-6.0); WHITE BLOOD COUNT (AUTO) 5.9 K/uL (4.3-11.0)
[2016-11-15 07:13] LABS: ALBUMIN 1.8 g/dL (3.4-5.0); BILIRUBIN,TOTAL 0.2 mg/dL (0.2-1.0); CALCIUM, SERUM 7.9 mg/dL (8.5-10.1); CREATININE 0.5 mg/dL (0.6-1.3); POTASSIUM 3.4 mmol/L (3.5-5.1); TOTAL PROTEIN, SERUM 6.2 g/dL (6.4-8.2)
[2016-11-15 08:00] VITALS: BP 116/80
[2016-11-15 12:00] VITALS: BP 123/78
[2016-11-15 16:00] VITALS: BP 116/81
[2016-11-15 20:00] VITALS: BP 117/65
[2016-11-16] VITALS: BP 116/57
[2016-11-16 04:00] VITALS: BP 116/58
[2016-11-16 06:57] LABS: BASOPHILS % (AUTO) 0.3 % (0.0-2.0); EOSINOPHILS # (AUTO) 0.5 /CMM (0.0-0.7); EOSINOPHILS % (AUTO) 8.7 % (0.0-6.0); HEMATOCRIT 26 % (39-51); HEMOGLOBIN 8.5 g/dL (13.5-17.5); LYMPHOCYTES # (AUTO) 1.5 /CMM (0.8-4.8); MEAN CORPUSCULAR HEMOGLOBIN 27 PG (26.0-33.0); MEAN CORPUSCULAR HGB CONC 33 g/dl (31.0-36.0); MEAN CORPUSCULAR VOLUME 83 fL (80-96); MONOCYTES # (AUTO) 0.6 /CMM (0.1-1.30); MONOCYTES % (AUTO) 10.4 % (2.0-12.0); NEUTROPHILS # (AUTO) 3.5 /CMM (1.8-8.9); NEUTROPHILS % (AUTO) 56.6 % (43.0-81.0); PLATELET COUNT (AUTO) 228 /CMM (150-450); RDW COEFFICIENT OF VARIATION 17.4 (11.5-15.0); RED BLOOD CELL COUNT(AUTO) 3.11 MIL/uL (4.5-6.0); WHITE BLOOD COUNT (AUTO) 6.2 K/uL (4.3-11.0)
[2016-11-16 07:07] LABS: CREATININE 0.5 mg/dL (0.6-1.3); MAGNESIUM 1.6 mg/dL (1.8-2.4); PHOSPHORUS 2.4 mg/dL (2.5-4.9); POTASSIUM 3.5 mmol/L (3.5-5.1)
[2016-11-16 08:00] VITALS: BP 122/79
[2016-11-16 12:00] VITALS: BP 120/80
[2016-11-16 16:00] VITALS: BP 97/67
[2016-11-16 20:00] VITALS: BP 93/60
[2016-11-17] VITALS: BP 119/79
[2016-11-17 04:00] VITALS: BP 144/99
[2016-11-17 06:46] LABS: CALCIUM, SERUM 8.2 mg/dL (8.5-10.1); CREATININE 0.5 mg/dL (0.6-1.3); POTASSIUM 3.9 mmol/L (3.5-5.1)
[2016-11-17 06:49] LABS: GENTAMICIN,TROUGH 1.6 ug/ml (0.2-2.0); MAGNESIUM 2.1 mg/dL (1.8-2.4); PHOSPHORUS 2.8 mg/dL (2.5-4.9)
[2016-11-17 08:00] VITALS: BP 113/79
[2016-11-17 12:00] VITALS: BP 97/69
[2016-11-17] MEDS ORDERED: METR500P3 IV (15:34)
[2016-11-17] MEDS ORDERED: [UNRECOGNIZED DRUG - CODE] IV (15:34)
[2016-11-17 16:00] VITALS: BP 104/66
[2016-11-17 20:00] VITALS: BP 109/77
[2016-11-18] VITALS: BP 117/78
[2016-11-18 04:00] VITALS: BP 124/84
[2016-11-18 06:49] LABS: BASOPHILS % (AUTO) 0.2 % (0.0-2.0); EOSINOPHILS # (AUTO) 0.7 /CMM (0.0-0.7); EOSINOPHILS % (AUTO) 6.5 % (0.0-6.0); HEMATOCRIT 28 % (39-51); HEMOGLOBIN 9.3 g/dL (13.5-17.5); LYMPHOCYTES # (AUTO) 2.1 /CMM (0.8-4.8); LYMPHOCYTES % (AUTO) 20.3 % (20.0-44.0); MEAN CORPUSCULAR HEMOGLOBIN 28 PG (26.0-33.0); MEAN CORPUSCULAR HGB CONC 33 g/dl (31.0-36.0); MEAN CORPUSCULAR VOLUME 83 fL (80-96); MONOCYTES # (AUTO) 0.8 /CMM (0.1-1.30); MONOCYTES % (AUTO) 7.5 % (2.0-12.0); NEUTROPHILS # (AUTO) 6.7 /CMM (1.8-8.9); NEUTROPHILS % (AUTO) 65.5 % (43.0-81.0); PLATELET COUNT (AUTO) 279 /CMM (150-450); RED BLOOD CELL COUNT(AUTO) 3.38 MIL/uL (4.5-6.0); WHITE BLOOD COUNT (AUTO) 10.3 K/uL (4.3-11.0)
[2016-11-18 07:15] LABS: CALCIUM, SERUM 8.4 mg/dL (8.5-10.1); CREATININE 0.5 mg/dL (0.6-1.3); MAGNESIUM 1.8 mg/dL (1.8-2.4); PHOSPHORUS 3.7 mg/dL (2.5-4.9); POTASSIUM 3.9 mmol/L (3.5-5.1)
[2016-11-18 08:00] VITALS: BP 127/69
[2016-11-18 12:00] VITALS: BP 104/63
[2016-11-18 16:00] VITALS: BP_SYST 127; BP_SYST 98; BP_DIAS 59; BP_DIAS 69
[2016-11-18 20:00] VITALS: BP 101/68
[2016-11-19] VITALS: BP 121/80
[2016-11-19 04:00] VITALS: BP 134/90
[2016-11-19 07:23] LABS: BASOPHILS % (AUTO) 0.2 % (0.0-2.0); EOSINOPHILS # (AUTO) 0.7 /CMM (0.0-0.7); EOSINOPHILS % (AUTO) 8.5 % (0.0-6.0); HEMATOCRIT 29 % (39-51); HEMOGLOBIN 9.8 g/dL (13.5-17.5); LYMPHOCYTES # (AUTO) 2.1 /CMM (0.8-4.8); LYMPHOCYTES % (AUTO) 24.6 % (20.0-44.0); MEAN CORPUSCULAR HEMOGLOBIN 28 PG (26.0-33.0); MEAN CORPUSCULAR HGB CONC 34 g/dl (31.0-36.0); MEAN CORPUSCULAR VOLUME 84 fL (80-96); MONOCYTES # (AUTO) 0.8 /CMM (0.1-1.30); MONOCYTES % (AUTO) 9.5 % (2.0-12.0); NEUTROPHILS % (AUTO) 57.2 % (43.0-81.0); PLATELET COUNT (AUTO) 341 /CMM (150-450); RDW COEFFICIENT OF VARIATION 17.5 (11.5-15.0); RED BLOOD CELL COUNT(AUTO) 3.45 MIL/uL (4.5-6.0); WHITE BLOOD COUNT (AUTO) 8.7 K/uL (4.3-11.0)
[2016-11-19 08:00] VITALS: BP 113/79
[2016-11-19 08:03] LABS: CALCIUM, SERUM 8.4 mg/dL (8.5-10.1); CREATININE 0.6 mg/dL (0.6-1.3); MAGNESIUM 1.9 mg/dL (1.8-2.4); PHOSPHORUS 4.7 mg/dL (2.5-4.9); POTASSIUM 4.7 mmol/L (3.5-5.1)
[2016-11-19 12:00] VITALS: BP 110/67
[2016-11-19 16:00] VITALS: BP 124/75
[2016-11-19 20:00] VITALS: BP 132/81
[2016-11-20] VITALS: BP 123/80
[2016-11-20 04:00] VITALS: BP 112/72
[2016-11-20 05:51] LABS: BASOPHILS % (AUTO) 0.1 % (0.0-2.0); EOSINOPHILS # (AUTO) 0.9 /CMM (0.0-0.7); HEMATOCRIT 36 % (39-51); HEMOGLOBIN 11.9 g/dL (13.5-17.5); LYMPHOCYTES # (AUTO) 3.1 /CMM (0.8-4.8); LYMPHOCYTES % (AUTO) 27.9 % (20.0-44.0); MEAN CORPUSCULAR HEMOGLOBIN 27 PG (26.0-33.0); MEAN CORPUSCULAR HGB CONC 33 g/dl (31.0-36.0); MEAN CORPUSCULAR VOLUME 83 fL (80-96); MONOCYTES # (AUTO) 1.3 /CMM (0.1-1.30); MONOCYTES % (AUTO) 12.1 % (2.0-12.0); NEUTROPHILS # (AUTO) 5.7 /CMM (1.8-8.9); NEUTROPHILS % (AUTO) 51.9 % (43.0-81.0); PLATELET COUNT (AUTO) 444 /CMM (150-450); RDW COEFFICIENT OF VARIATION 18.2 (11.5-15.0); RED BLOOD CELL COUNT(AUTO) 4.37 MIL/uL (4.5-6.0)
[2016-11-20 06:07] LABS: CREATININE 0.7 mg/dL (0.6-1.3); PHOSPHORUS 4.1 mg/dL (2.5-4.9); POTASSIUM 4.6 mmol/L (3.5-5.1)
[2016-11-20 08:00] VITALS: BP 139/88
[2016-11-20 12:00] VITALS: BP 131/82
[2016-11-20 16:00] VITALS: BP 129/80
[2016-11-20 20:00] VITALS: BP 120/67
[2016-11-21] VITALS: BP 120/74
[2016-11-21 04:00] VITALS: BP 123/86
[2016-11-21 06:29] LABS: BASOPHILS % (AUTO) 0.3 % (0.0-2.0); EOSINOPHILS # (AUTO) 0.6 /CMM (0.0-0.7); EOSINOPHILS % (AUTO) 6.1 % (0.0-6.0); HEMATOCRIT 35 % (39-51); HEMOGLOBIN 11.6 g/dL (13.5-17.5); LYMPHOCYTES # (AUTO) 2.1 /CMM (0.8-4.8); MEAN CORPUSCULAR HEMOGLOBIN 28 PG (26.0-33.0); MEAN CORPUSCULAR HGB CONC 33 g/dl (31.0-36.0); MEAN CORPUSCULAR VOLUME 84 fL (80-96); MONOCYTES % (AUTO) 10.1 % (2.0-12.0); NEUTROPHILS # (AUTO) 6.3 /CMM (1.8-8.9); NEUTROPHILS % (AUTO) 62.5 % (43.0-81.0); PLATELET COUNT (AUTO) 429 /CMM (150-450); RDW COEFFICIENT OF VARIATION 18.4 (11.5-15.0); RED BLOOD CELL COUNT(AUTO) 4.21 MIL/uL (4.5-6.0)
[2016-11-21 06:49] LABS: CALCIUM, SERUM 8.6 mg/dL (8.5-10.1); CREATININE 0.7 mg/dL (0.6-1.3); PHOSPHORUS 3.8 mg/dL (2.5-4.9); POTASSIUM 4.8 mmol/L (3.5-5.1)
[2016-11-21 08:00] VITALS: BP 110/81
[2016-11-21 12:00] VITALS: BP 108/75
[2016-11-21 16:00] VITALS: BP_SYST 109; BP_SYST 114; BP_DIAS 72; BP_DIAS 76
[2016-11-21 20:00] VITALS: BP 98/73
[2016-11-22] VITALS: BP 125/75
[2016-11-22 04:00] VITALS: BP 110/74
[2016-11-22 06:26] LABS: BASOPHILS % (AUTO) 0.3 % (0.0-2.0); EOSINOPHILS # (AUTO) 0.5 /CMM (0.0-0.7); EOSINOPHILS % (AUTO) 4.3 % (0.0-6.0); HEMATOCRIT 33 % (39-51); HEMOGLOBIN 10.8 g/dL (13.5-17.5); MEAN CORPUSCULAR HEMOGLOBIN 28 PG (26.0-33.0); MEAN CORPUSCULAR HGB CONC 33 g/dl (31.0-36.0); MEAN CORPUSCULAR VOLUME 84 fL (80-96); MONOCYTES % (AUTO) 8.5 % (2.0-12.0); NEUTROPHILS % (AUTO) 69.9 % (43.0-81.0); PLATELET COUNT (AUTO) 397 /CMM (150-450); RDW COEFFICIENT OF VARIATION 18.3 (11.5-15.0); RED BLOOD CELL COUNT(AUTO) 3.87 MIL/uL (4.5-6.0); WHITE BLOOD COUNT (AUTO) 11.5 K/uL (4.3-11.0)
[2016-11-22 06:33] LABS: CALCIUM, SERUM 8.5 mg/dL (8.5-10.1); CREATININE 0.6 mg/dL (0.6-1.3); MAGNESIUM 1.9 mg/dL (1.8-2.4); PHOSPHORUS 3.8 mg/dL (2.5-4.9); POTASSIUM 3.7 mmol/L (3.5-5.1)
[2016-11-22 08:00] VITALS: BP 105/73
[2016-11-22 12:00] VITALS: BP 97/67
[2016-11-22 16:00] VITALS: BP 111/70
[2016-11-22 20:00] VITALS: BP 106/69
[2016-11-23] VITALS: BP 103/73
[2016-11-23 04:00] VITALS: BP 128/74
[2016-11-23 06:53] LABS: CREATININE 0.6 mg/dL (0.6-1.3); POTASSIUM 4.6 mmol/L (3.5-5.1)
[2016-11-23 08:00] VITALS: BP 124/80
[2016-11-23 12:00] VITALS: BP 93/59
[2016-11-23 16:00] VITALS: BP 104/65
[2016-11-23 20:00] VITALS: BP 124/80
[2016-11-24] VITALS: BP 140/99
[2016-11-24 04:00] VITALS: BP 138/92
[2016-11-24 06:51] LABS: CALCIUM, SERUM 8.5 mg/dL (8.5-10.1); CREATININE 0.6 mg/dL (0.6-1.3); POTASSIUM 3.8 mmol/L (3.5-5.1)
[2016-11-24 08:00] VITALS: BP 116/81
[2016-11-24 08:16] LABS: EOSINOPHILS # (AUTO) 0.3 /CMM (0.0-0.7); EOSINOPHILS % (AUTO) 1.9 % (0.0-6.0); HEMATOCRIT 34 % (39-51); HEMOGLOBIN 11.1 g/dL (13.5-17.5); LYMPHOCYTES # (AUTO) 1.5 /CMM (0.8-4.8); LYMPHOCYTES % (AUTO) 11.3 % (20.0-44.0); MEAN CORPUSCULAR HEMOGLOBIN 28 PG (26.0-33.0); MEAN CORPUSCULAR HGB CONC 33 g/dl (31.0-36.0); MEAN CORPUSCULAR VOLUME 84 fL (80-96); MONOCYTES # (AUTO) 1.3 /CMM (0.1-1.30); MONOCYTES % (AUTO) 9.9 % (2.0-12.0); NEUTROPHILS # (AUTO) 10.4 /CMM (1.8-8.9); NEUTROPHILS % (AUTO) 76.9 % (43.0-81.0); PLATELET COUNT (AUTO) 409 /CMM (150-450); RDW COEFFICIENT OF VARIATION 18.4 (11.5-15.0); RED BLOOD CELL COUNT(AUTO) 3.99 MIL/uL (4.5-6.0); WHITE BLOOD COUNT (AUTO) 13.5 K/uL (4.3-11.0)
[2016-11-24 11:25] LABS: BAND % (MANUAL) 1 % (0.0-5.0); EOSINOPHILS % (MANUAL) 1 % (0-4); LYMPHOCYTES % (MANUAL) 6 % (16-48); MONOCYTES % (MANUAL) 9 % (0-11.0); NEUTROPHILS % (MANUAL) 83 (42-76)
[2016-11-24 12:00] VITALS: BP 114/84
[2016-11-24 16:00] VITALS: BP 112/80
[2016-11-24 20:00] VITALS: BP_SYST 110; BP_DIAS 73; BP_DIAS 74
[2016-11-25] VITALS: BP 117/78
[2016-11-25 04:00] VITALS: BP 127/93
[2016-11-25 07:48] LABS: CALCIUM, SERUM 8.7 mg/dL (8.5-10.1); CREATININE 0.7 mg/dL (0.6-1.3); POTASSIUM 4.2 mmol/L (3.5-5.1)
[2016-11-25 08:00] VITALS: BP 109/78
[2016-11-25 09:18] LABS: BASOPHILS % (AUTO) 0.3 % (0.0-2.0); EOSINOPHILS # (AUTO) 0.4 /CMM (0.0-0.7); EOSINOPHILS % (AUTO) 4.3 % (0.0-6.0); HEMATOCRIT 35 % (39-51); HEMOGLOBIN 11.3 g/dL (13.5-17.5); LYMPHOCYTES # (AUTO) 1.8 /CMM (0.8-4.8); LYMPHOCYTES % (AUTO) 19.2 % (20.0-44.0); MEAN CORPUSCULAR HEMOGLOBIN 28 PG (26.0-33.0); MEAN CORPUSCULAR HGB CONC 33 g/dl (31.0-36.0); MEAN CORPUSCULAR VOLUME 86 fL (80-96); MONOCYTES # (AUTO) 1.2 /CMM (0.1-1.30); MONOCYTES % (AUTO) 12.5 % (2.0-12.0); NEUTROPHILS # (AUTO) 5.9 /CMM (1.8-8.9); NEUTROPHILS % (AUTO) 63.7 % (43.0-81.0); PLATELET COUNT (AUTO) 400 /CMM (150-450); RDW COEFFICIENT OF VARIATION 18.2 (11.5-15.0); RED BLOOD CELL COUNT(AUTO) 4.05 MIL/uL (4.5-6.0); WHITE BLOOD COUNT (AUTO) 9.3 K/uL (4.3-11.0)
[2016-11-25 11:23] LABS: APPEARANCE,URINE YELLOW (CLEAR); COLOR,URINE CLEAR (YELLOW)
[2016-11-25 11:24] LABS: BILIRUBIN,URINE NEGATIVE (NEGATIVE); BLOOD, URINE N Ery/uL (NEGATIVE); KETONES,URINE NEGATIVE (NEGATIVE); LEUKOCYTE ESTERASE ,URINE NEGATIVE (NEGATIVE); NITRITE, URINE NEGATIVE (NEGATIVE); PROTEIN,URINE NEGATIVE (NEGATIVE); UGLUCOSE NEGATIVE (NEGATIVE); UROBILINOGEN,URINE 0.2 EU/dL (0.2)
[2016-11-25 12:00] VITALS: BP_SYST 112; BP_DIAS 56; BP_DIAS 66
[2016-11-25 16:00] VITALS: BP 107/71
[2016-11-25 20:00] VITALS: BP 119/84
[2016-11-26] VITALS: BP 113/82
[2016-11-26 04:00] VITALS: BP 146/90
[2016-11-26 07:17] LABS: CALCIUM, SERUM 8.7 mg/dL (8.5-10.1); CREATININE 0.6 mg/dL (0.6-1.3); POTASSIUM 3.8 mmol/L (3.5-5.1)
[2016-11-26 08:00] VITALS: BP 127/90
[2016-11-26 12:00] VITALS: BP 140/92
[2016-11-26 16:00] VITALS: BP 128/88
[2016-11-26 20:00] VITALS: BP 121/83
[2016-11-27] VITALS (7 sets, daily range): BP systolic 105–125; BP diastolic 53–83
[2016-11-27 05:41] LABS: CALCIUM, SERUM 8.5 mg/dL (8.5-10.1); CREATININE 0.6 mg/dL (0.6-1.3)
[2016-11-27 05:51] LABS: POTASSIUM 3.8 mmol/L (3.5-5.1)
[2016-11-28] VITALS (7 sets, daily range): BP systolic 107–142; BP diastolic 70–97
[2016-11-28 06:37] LABS: BASOPHILS % (AUTO) 0.3 % (0.0-2.0); EOSINOPHILS # (AUTO) 0.4 /CMM (0.0-0.7); EOSINOPHILS % (AUTO) 3.8 % (0.0-6.0); HEMATOCRIT 32 % (39-51); HEMOGLOBIN 10.6 g/dL (13.5-17.5); LYMPHOCYTES # (AUTO) 1.9 /CMM (0.8-4.8); LYMPHOCYTES % (AUTO) 17.4 % (20.0-44.0); MEAN CORPUSCULAR HEMOGLOBIN 28 PG (26.0-33.0); MEAN CORPUSCULAR HGB CONC 33 g/dl (31.0-36.0); MEAN CORPUSCULAR VOLUME 84 fL (80-96); MONOCYTES # (AUTO) 1.2 /CMM (0.1-1.30); MONOCYTES % (AUTO) 11.2 % (2.0-12.0); NEUTROPHILS # (AUTO) 7.3 /CMM (1.8-8.9); NEUTROPHILS % (AUTO) 67.3 % (43.0-81.0); PLATELET COUNT (AUTO) 353 /CMM (150-450); RDW COEFFICIENT OF VARIATION 17.7 (11.5-15.0); WHITE BLOOD COUNT (AUTO) 10.8 K/uL (4.3-11.0)
[2016-11-28 06:50] LABS: CALCIUM, SERUM 8.8 mg/dL (8.5-10.1); CREATININE 0.6 mg/dL (0.6-1.3); POTASSIUM 4.2 mmol/L (3.5-5.1)
[2016-11-29] VITALS: BP 144/97
[2016-11-29 04:00] VITALS: BP 143/107
[2016-11-29 08:00] VITALS: BP 140/101
[2016-11-29 12:00] VITALS: BP 123/88
[2016-11-29 16:00] VITALS: BP 123/86
[2016-11-29 20:00] VITALS: BP 123/83
[2016-11-30] VITALS (7 sets, daily range): BP systolic 108–140; BP diastolic 60–86
[2016-12-01] VITALS (8 sets, daily range): BP systolic 118–134; BP diastolic 71–81
[2016-12-02] VITALS: BP 133/79
[2016-12-02 04:00] VITALS: BP 121/83
[2016-12-02 08:00] VITALS: BP 120/89
[2016-12-02 12:00] VITALS: BP 113/85
[2016-12-02 16:00] VITALS: BP 125/86
[2016-12-02 20:00] VITALS: BP 137/79
[2016-12-03] VITALS: BP 119/81
[2016-12-03 04:00] VITALS: BP 126/94
[2016-12-03 08:00] VITALS: BP 130/85
[2016-12-03 12:00] VITALS: BP 122/91
[2016-12-03 16:00] VITALS: BP 119/79
[2016-12-03 20:00] VITALS: BP 124/83
[2016-12-04] VITALS: BP 120/80
[2016-12-04 04:00] VITALS: BP 122/85
[2016-12-04 06:35] LABS: BASOPHILS % (AUTO) 0.2 % (0.0-2.0); EOSINOPHILS # (AUTO) 0.3 /CMM (0.0-0.7); EOSINOPHILS % (AUTO) 2.8 % (0.0-6.0); HEMATOCRIT 38 % (39-51); HEMOGLOBIN 12.7 g/dL (13.5-17.5); LYMPHOCYTES # (AUTO) 1.7 /CMM (0.8-4.8); LYMPHOCYTES % (AUTO) 14.3 % (20.0-44.0); MEAN CORPUSCULAR HEMOGLOBIN 28 PG (26.0-33.0); MEAN CORPUSCULAR HGB CONC 33 g/dl (31.0-36.0); MEAN CORPUSCULAR VOLUME 84 fL (80-96); MONOCYTES # (AUTO) 1.1 /CMM (0.1-1.30); MONOCYTES % (AUTO) 9.2 % (2.0-12.0); NEUTROPHILS # (AUTO) 8.6 /CMM (1.8-8.9); NEUTROPHILS % (AUTO) 73.5 % (43.0-81.0); PLATELET COUNT (AUTO) 318 /CMM (150-450); RED BLOOD CELL COUNT(AUTO) 4.55 MIL/uL (4.5-6.0); WHITE BLOOD COUNT (AUTO) 11.7 K/uL (4.3-11.0)
[2016-12-04 07:44] LABS: CALCIUM, SERUM 9.3 mg/dL (8.5-10.1); CREATININE 0.7 mg/dL (0.6-1.3); MAGNESIUM 2.2 mg/dL (1.8-2.4); PHOSPHORUS 3.8 mg/dL (2.5-4.9); POTASSIUM 4.2 mmol/L (3.5-5.1)
[2016-12-04 08:00] VITALS: BP_SYST 114; BP_SYST 118; BP_DIAS 62; BP_DIAS 84
[2016-12-04 12:00] VITALS: BP 122/82
[2016-12-04 16:00] VITALS: BP 125/85
[2016-12-04 20:00] VITALS: BP 109/75
[2016-12-05] VITALS: BP 126/86
[2016-12-05 04:00] VITALS: BP 130/89
[2016-12-05 08:00] VITALS: BP 131/92
[2016-12-05 12:00] VITALS: BP 118/86
[2016-12-05 16:00] VITALS: BP 118/75
[2016-12-05 18:10] LABS: APPEARANCE,URINE CLOUDY (CLEAR); BILIRUBIN,URINE NEGATIVE (NEGATIVE); BLOOD, URINE 3+ Ery/uL (NEGATIVE); COLOR,URINE RED (YELLOW); KETONES,URINE NEGATIVE (NEGATIVE); LEUKOCYTE ESTERASE ,URINE TRACE (NEGATIVE); PROTEIN,URINE 2+ mg/dl (NEGATIVE); UGLUCOSE NEGATIVE (NEGATIVE); UROBILINOGEN,URINE 0.2 EU/dL (0.2)
[2016-12-05 18:17] LABS: NITRITE, URINE NEG (NEGATIVE)
[2016-12-05 18:18] LABS: BACTERIA,URINE None seen /HPF (None Seen); RBC,URINE TOO NUMEROUS TO COUN /HPF (0-2); SQUAMOUS EPITHELIAL CELL,UR None Seen /HPF (None Seen); WBC,URINE 0-2 /HPF (0-3)
[2016-12-05 18:24] LABS: BASOPHILS % (AUTO) 0.5 % (0.0-2.0); EOSINOPHILS # (AUTO) 0.3 /CMM (0.0-0.7); EOSINOPHILS % (AUTO) 3.1 % (0.0-6.0); HEMATOCRIT 35 % (39-51); HEMOGLOBIN 11.6 g/dL (13.5-17.5); LYMPHOCYTES # (AUTO) 1.4 /CMM (0.8-4.8); LYMPHOCYTES % (AUTO) 14.3 % (20.0-44.0); MEAN CORPUSCULAR HEMOGLOBIN 28 PG (26.0-33.0); MEAN CORPUSCULAR HGB CONC 33 g/dl (31.0-36.0); MEAN CORPUSCULAR VOLUME 84 fL (80-96); MONOCYTES # (AUTO) 0.8 /CMM (0.1-1.30); NEUTROPHILS # (AUTO) 7.2 /CMM (1.8-8.9); NEUTROPHILS % (AUTO) 74.1 % (43.0-81.0); PLATELET COUNT (AUTO) 287 /CMM (150-450); RDW COEFFICIENT OF VARIATION 16.3 (11.5-15.0); RED BLOOD CELL COUNT(AUTO) 4.19 MIL/uL (4.5-6.0); WHITE BLOOD COUNT (AUTO) 9.7 K/uL (4.3-11.0)
[2016-12-05 20:00] VITALS: BP 106/75
[2016-12-06] VITALS: BP 117/79
[2016-12-06 04:00] VITALS: BP 110/80
[2016-12-06 08:00] VITALS: BP 114/78
[2016-12-06 12:00] VITALS: BP 108/78
[2016-12-06 16:00] VITALS: BP 123/63
[2016-12-06 20:00] VITALS: BP 132/91
[2016-12-07] VITALS (9 sets, daily range): BP systolic 108–127; BP diastolic 73–83
[2016-12-07 06:54] LABS: BASOPHILS % (AUTO) 0.1 % (0.0-2.0); EOSINOPHILS # (AUTO) 0.3 /CMM (0.0-0.7); EOSINOPHILS % (AUTO) 2.6 % (0.0-6.0); HEMATOCRIT 38 % (39-51); HEMOGLOBIN 12.4 g/dL (13.5-17.5); LYMPHOCYTES % (AUTO) 15.8 % (20.0-44.0); MEAN CORPUSCULAR HEMOGLOBIN 28 PG (26.0-33.0); MEAN CORPUSCULAR HGB CONC 33 g/dl (31.0-36.0); MEAN CORPUSCULAR VOLUME 84 fL (80-96); MONOCYTES # (AUTO) 0.9 /CMM (0.1-1.30); MONOCYTES % (AUTO) 6.9 % (2.0-12.0); NEUTROPHILS # (AUTO) 9.4 /CMM (1.8-8.9); NEUTROPHILS % (AUTO) 74.6 % (43.0-81.0); PLATELET COUNT (AUTO) 275 /CMM (150-450); RDW COEFFICIENT OF VARIATION 16.4 (11.5-15.0); RED BLOOD CELL COUNT(AUTO) 4.46 MIL/uL (4.5-6.0); WHITE BLOOD COUNT (AUTO) 12.6 K/uL (4.3-11.0)
[2016-12-08] VITALS: BP 117/84
[2016-12-08 04:00] VITALS: BP 132/83
[2016-12-08 08:00] VITALS: BP 135/90
[2016-12-08 12:00] VITALS: BP 126/82
[2016-12-08 16:00] VITALS: BP 131/84
[2016-12-08 20:00] VITALS: BP 126/84
[2016-12-09] VITALS (7 sets, daily range): BP systolic 106–144; BP diastolic 58–94
[2016-12-10] VITALS: BP 126/87
[2016-12-10 04:00] VITALS: BP 119/82
[2016-12-10 08:00] VITALS: BP 120/84
[2016-12-10 12:00] VITALS: BP 104/72
[2016-12-10 16:00] VITALS: BP 111/78
[2016-12-10 20:00] VITALS: BP 116/85
[2016-12-11] VITALS: BP 113/78
[2016-12-11 04:00] VITALS: BP 121/86
[2016-12-11 08:00] VITALS: BP 115/81
[2016-12-11 12:00] VITALS: BP 114/71
[2016-12-11 16:00] VITALS: BP_SYST 113; BP_SYST 135; BP_DIAS 70; BP_DIAS 81
[2016-12-11 20:00] VITALS: BP 115/80
[2016-12-12] VITALS (7 sets, daily range): BP systolic 112–132; BP diastolic 80–99
[2016-12-12 09:27] LABS: BASOPHILS % (AUTO) 0.3 % (0.0-2.0); EOSINOPHILS # (AUTO) 0.6 /CMM (0.0-0.7); EOSINOPHILS % (AUTO) 6.7 % (0.0-6.0); HEMATOCRIT 36 % (39-51); HEMOGLOBIN 11.8 g/dL (13.5-17.5); LYMPHOCYTES # (AUTO) 1.7 /CMM (0.8-4.8); LYMPHOCYTES % (AUTO) 17.9 % (20.0-44.0); MEAN CORPUSCULAR HEMOGLOBIN 28 PG (26.0-33.0); MEAN CORPUSCULAR HGB CONC 33 g/dl (31.0-36.0); MEAN CORPUSCULAR VOLUME 83 fL (80-96); MONOCYTES # (AUTO) 0.8 /CMM (0.1-1.30); MONOCYTES % (AUTO) 8.9 % (2.0-12.0); NEUTROPHILS # (AUTO) 6.1 /CMM (1.8-8.9); NEUTROPHILS % (AUTO) 66.2 % (43.0-81.0); PLATELET COUNT (AUTO) 285 /CMM (150-450); RDW COEFFICIENT OF VARIATION 15.9 (11.5-15.0); WHITE BLOOD COUNT (AUTO) 9.3 K/uL (4.3-11.0)
[2016-12-12 09:35] LABS: CALCIUM, SERUM 9.1 mg/dL (8.5-10.1); CREATININE 0.6 mg/dL (0.6-1.3); MAGNESIUM 1.9 mg/dL (1.8-2.4); POTASSIUM 3.9 mmol/L (3.5-5.1)
[2016-12-13] VITALS (69 sets, daily range): BP systolic 58–200; BP diastolic 15–146
[2016-12-13 09:47] LABS: CALCIUM, SERUM 8.6 mg/dL (8.5-10.1); CREATININE 0.9 mg/dL (0.6-1.3); POTASSIUM 4.4 mmol/L (3.5-5.1)
[2016-12-13 11:46] LABS: EOSINOPHILS # (AUTO) 0.1 /CMM (0.0-0.7); EOSINOPHILS % (AUTO) 0.3 % (0.0-6.0); HEMATOCRIT 33 % (39-51); LYMPHOCYTES # (AUTO) 1.1 /CMM (0.8-4.8); MEAN CORPUSCULAR HEMOGLOBIN 28 PG (26.0-33.0); MEAN CORPUSCULAR HGB CONC 34 g/dl (31.0-36.0); MEAN CORPUSCULAR VOLUME 83 fL (80-96); MONOCYTES % (AUTO) 2.8 % (2.0-12.0); NEUTROPHILS # (AUTO) 33.2 /CMM (1.8-8.9); NEUTROPHILS % (AUTO) 93.9 % (43.0-81.0); PLATELET COUNT (AUTO) 169 /CMM (150-450); RDW COEFFICIENT OF VARIATION 15.8 (11.5-15.0); RED BLOOD CELL COUNT(AUTO) 3.93 MIL/uL (4.5-6.0)
[2016-12-13 11:52] LABS: WHITE BLOOD COUNT (AUTO) 35.4 K/uL (4.3-11.0)
[2016-12-13 12:12] LABS: BAND % (MANUAL) 25 % (0.0-5.0); LYMPHOCYTES % (MANUAL) 3 % (16-48); METAMYELOCYTES % 3 % (0-0); MONOCYTES % (MANUAL) 7 % (0-11.0); MYELOCYTES % 2 % (0-0); NEUTROPHILS % (MANUAL) 60 (42-76)
[2016-12-13 14:32] LABS: BILIRUBIN,DIRECT 0.4 mg/dL (0.0-0.2); BILIRUBIN,TOTAL 0.8 mg/dL (0.2-1.0)
[2016-12-13 15:37] LABS: ABG BASE EXCESS -10.5 mmol/L; ABG OXYGEN SATURATION 92.3 % (92.0-98.5); ABG PCO2 20.1 mmHg (35.0-45.0); ABG PH 7.404 (7.350-7.450); ABG PO2 66.6 mmHg (75.0-100.0); AaDO2 123.7 mmHg; COHb 0.3 % (0.5-1.5); MetHb 1.2 % (0.0-1.5); O2Hb 90.9 % (94.0-97.0); SITE, ABG Right Radial; VENT MODE, BG AC 14; VT, ABG 500 mL
[2016-12-14] VITALS (82 sets, daily range): BP systolic 59–180; BP diastolic 18–110
[2016-12-14 04:30] LABS: HEMATOCRIT 33 % (39-51); HEMOGLOBIN 10.6 g/dL (13.5-17.5); LYMPHOCYTES # (AUTO) 1.3 /CMM (0.8-4.8); LYMPHOCYTES % (AUTO) 2.5 % (20.0-44.0); MEAN CORPUSCULAR HEMOGLOBIN 28 PG (26.0-33.0); MEAN CORPUSCULAR HGB CONC 32 g/dl (31.0-36.0); MEAN CORPUSCULAR VOLUME 87 fL (80-96); MONOCYTES # (AUTO) 1.1 /CMM (0.1-1.30); NEUTROPHILS # (AUTO) 50.4 /CMM (1.8-8.9); NEUTROPHILS % (AUTO) 95.5 % (43.0-81.0); PLATELET COUNT (AUTO) 130 /CMM (150-450); RDW COEFFICIENT OF VARIATION 15.9 (11.5-15.0); RED BLOOD CELL COUNT(AUTO) 3.83 MIL/uL (4.5-6.0)
[2016-12-14 04:43] LABS: WHITE BLOOD COUNT (AUTO) 52.8 K/uL (4.3-11.0)
[2016-12-14 04:44] LABS: CREATININE 1.9 mg/dL (0.6-1.3)
[2016-12-14 04:58] LABS: POTASSIUM 6.2 mmol/L (3.5-5.1)
[2016-12-14 05:11] LABS: BAND % (MANUAL) 36 % (0.0-5.0); LYMPHOCYTES % (MANUAL) 2 % (16-48); MONOCYTES % (MANUAL) 13 % (0-11.0); NEUTROPHILS % (MANUAL) 49 (42-76)
[2016-12-14 08:58] LABS: ABG BASE EXCESS -26.4 mmol/L; ABG OXYGEN SATURATION 97.9 % (92.0-98.5); ABG PCO2 23.4 mmHg (35.0-45.0); ABG PH 6.928 (7.350-7.450); ABG PO2 163.5 mmHg (75.0-100.0); AaDO2 166.7 mmHg; COHb 0.3 % (0.5-1.5); MetHb 0.8 % (0.0-1.5); O2Hb 96.8 % (94.0-97.0); PEEP,BG 0 cm H2O; SITE, ABG Left Radial; VENT MODE, BG AC 14 500 50% +0; VT, ABG 500 mL
== END 2016-12-14 18:16 | disposition expired | DRG 720 ==
LOC: ER 11:06 → TELE 13:01 → TELE1 11-05 12:35 → TELE-TD 11-05 20:11 → TELE1 11-07 10:39 → TELE-TD 11-11 13:16 → TELE1 11-15 09:55 → ICU 12-13 10:44
PROVIDERS: ADMIT Internal Medicine; ATTEND Internal Medicine
PROC: 5A1955Z Respiratory Ventilation, Greater than 96 Consecutive Hours (ICD-10-PCS; principal; 2016-11-04)
PROC: 0D20XUZ Change Feeding Device in Upper Intestinal Tract, External Approach (ICD-10-PCS; 2016-11-14)
PROC: 06HY33Z Insertion of Infusion Device into Lower Vein, Percutaneous Approach (ICD-10-PCS; 2016-12-13)
DX: A41.59 Other Gram-negative sepsis (principal); J96.21 Acute and chronic respiratory failure with hypoxia; G92 Toxic encephalopathy; R65.21 Severe sepsis with septic shock; E43 Unspecified severe protein-calorie malnutrition; J15.1 Pneumonia due to Pseudomonas; J15.6 Pneumonia due to other Gram-negative bacteria; B49 Unspecified mycosis; Z51.5 Encounter for palliative care; Z66 Do not resuscitate; Z99.11 Dependence on respirator [ventilator] status; E87.2 Acidosis; G91.9 Hydrocephalus, unspecified; K94.23 Gastrostomy malfunction; R13.10 Dysphagia, unspecified; Z98.2 Presence of cerebrospinal fluid drainage device; Z87.820 Personal history of traumatic brain injury; Z87.01 Personal history of pneumonia (recurrent); Z79.899 Other long term (current) drug therapy; Z16.24 Resistance to multiple antibiotics; Y95 Nosocomial condition; K59.00 Constipation, unspecified; K21.9 Gastro-esophageal reflux disease without esophagitis; H10.9 Unspecified conjunctivitis; F09 Unspecified mental disorder due to known physiological condition; E87.6 Hypokalemia; E87.5 Hyperkalemia; E83.51 Hypocalcemia; E83.39 Other disorders of phosphorus metabolism; E11.22 Type 2 diabetes mellitus with diabetic chronic kidney disease; D63.8 Anemia in other chronic diseases classified elsewhere; Z74.01 Bed confinement status; Y83.3 Surgical operation with formation of external stoma as the cause of abnormal reaction of the patient, or of later complication, without mention of misadventure at the time of the procedure; Y81.3 Surgical instruments, materials and general- and plastic-surgery devices (including sutures) associated with adverse incidents; Y92.129 Unspecified place in nursing home as the place of occurrence of the external cause; B96.1 Klebsiella pneumoniae [K. pneumoniae] as the cause of diseases classified elsewhere; N39.0 Urinary tract infection, site not specified
CPT/HCPCS: 31720; 36415; 36569; 36600; 71010-TC; 74000-TC; 80048-TC; 80053-TC; 80076-TC; 80170-TC; 80202-TC; 81000-TC; 82247-TC; 82248-TC; 82803-TC; 82962-TC; 83605-TC; 83735-TC; 84100-TC; 84484-TC; 85025-TC; 85730-TC; 87040-TC; 87070-TC; 87081-TC; 87086-TC; 87186-TC; 94002-TC; 94003-TC; 94760-TC; 94761-TC; 94762-TC; A4216; A4349; A4606; A6248; A6253; A6402; A6403; C1751; J0133; J0153; J0278; J0610; J0637; J0690; J0770; J1450; J1580; J1650; J1956; J2020; J2185; J2248; J2270; J2370; J2543; J3370; J3475; J3480; J3490; J7030; J7042; J7050; J7060; J7070; Q9963; Z7610